=== PATIENT | female | born 2000 | race Caucasian/White ===

== ENCOUNTER 2021-03-14 11:29 | Emergency (ER) | payer BC, SELFPAY ==
[2021-03-14 13:40] VITALS: BP 124/77; PULSE 115; RESP 20; TEMP 37.5; O2SAT 100; BMI 21.9
[2021-03-14 14:11] LABS: Apearance,Urine Cloudy (Clear); Bilirubin,Urine Negative (Negative); Blood, Urine 2+ (Negative); Color,Urine Dark Yellow (Yellow); Glucose,Urine (UA) Negative (Negative); Ketones,Urine Negative (Negative); Protein,Urine Trace (Negative); UTC Leukocyte Esterase,Urine 3+ (Negative); UTC Nitrate,Urine Positive (Negative); Urobilinogen,Urine 0.2 EU/dl (0.2)
--- NOTE | 2021-03-14 14:40 | HMH.EDUTC ---
[facility] – [place] Disposition Clinical Impression: UTI (urinary tract infection) Qualifiers: Urinary tract infection type: site unspecified Hematuria presence: with hematuria Qualified Code(s): N39.0 - Urinary tract infection, site not specified Disposition: Home, Self-Care Condition on Discharge: Good Instructions: Urinary Tract Infection, DI for Urinary Tract Infection (UTI) Additional Instructions: Drink plenty of fluids. Take tylenol or ibuprofen for pain or fever. Take the medications as directed. Follow up with your regular doctor. GO TO THE ER FOR ANY WORSENING SYMPTOMS Quarantine until you know the results of your covid-19 test. If it is positive, the health department should call you and give you further instructions about your length of Quarantine and other things. Notify your school or workplace of your results and follow their instructions regarding return to work/school. The pyridium will make your urine turn orange, this is an expected side effect. It will stain your clothes if it comes into contact with them. Prescriptions: Nitrofurantoin Monohyd/M-Cryst [Macrobid 100 mg Capsule] 100 mg PO BID 5 Days #10 cap [facility]: [id number] Phenazopyridine HCl [Pyridium 200mg Tablet] 200 pow PO TID #6 tab Transmission Status: [facility] Ondansetron [Zofran 4mg ODT] 4 mg PO DAILYP PRN #12 tab PRN Reason: Nausea Transmission Status: [facility] Referrals: Provider,Referral, [Primary Care Provider] - Forms: Work/School Release Time of Disposition: 14:45 Medical Decision Making - Medical Records Medical records reviewed: No: I reviewed the patient's medical records. - Brent Inquiry Pt receiving controlled substance: No Vital Signs: 03/14/21 13:40 03/14/21 14:50 Temperature 99.5 F 99.5 F Temperature Source Oral Pulse Rate 115 H Pulse Rate [Right Brachial] 115 H Respiratory Rate 20 20 Blood Pressure 124/77 Blood Pressure [Right Arm] 124/77 Blood Pressure Mean [Right Arm] 92 Blood Pressure Source [Right Arm] Automatic Cuff Blood Pressure Position [Right Arm] Sitting 02 Sat by Pulse Oximetry 100 Oxygen Delivery Method Room Air - Lab Data Lab results reviewed: Yes: I reviewed the patient's lab results. Lab Results 03/14/21 14:00: Urine Color Dark yellow, Urine Appearance Cloudy, Urine pH 6.0, Ur Specific [place] 1.020, Urine Protein Trace, Urine Glucose (UA) Negative, Urine Ketones Negative, Urine Blood 2+, Urine Nitrate Positive A, Urine Bilirubin Negative, Urine Urobilinogen 0.2, Ur Leukocyte Esterase 3+ A [facility] – [place] HPI - General Stated complaint: back pain,chills Time Seen by Provider: 03/14/21 13:30 Mode of Arrival: Ambulatory Source of Information: Patient Limitations: No Limitations Description of Symptoms (Recalled from Triage Doc. by RN): PATIENT C/O LOWER BACK PAIN, FOUL SMELLING URINE AND CHILLS X 4 DAYS HEENT Symptoms (Recalled from RN notes): No Resp Symptoms (Recalled from RN notes): No Skin Symptoms (Recalled from RN notes): No MS Symptoms (Recalled from RN notes): No Functional Status (Recalled from RN notes): WNL - History of Present Illness Provider Complaint: She c/o low back pain for the past 3 days. She also has dysuria and urinary frequency. She thinks that she has a uti that is getting worse. She denies any fever or chills. - Related Data Previous Rx's Medication Instructions Recorded Nitrofurantoin Monohyd/M-Cryst 100 mg PO BID 5 Days #10 cap 03/14/21 [Macrobid 100 mg Capsule] Ondansetron [Zofran 4mg ODT] 4 mg PO DAILYP PRN #12 tab 03/14/21 Phenazopyridine HCl [Pyridium 200 pow PO TID #6 tab 03/14/21 200mg Tablet] Allergies Allergy/AdvReac Type Severity Reaction Status Date / Time Penicillins [PENICILLINS] Allergy Unknown Verified 03/14/21 14:10 Sulfa (Sulfonamide Allergy Unknown Verified 03/14/21 14:10 Antibiotics) [SULFA
[2021-03-14 14:50] VITALS: BP 124/77; PULSE 115; RESP 20; TEMP 37.5; O2SAT 100
== END 2021-03-14 14:53 | disposition home or self-care (01) ==
LOC: UTC 11:38
PROVIDERS: Emergency Provider Nurse Practitioner Family
DX: N30.00 Acute cystitis without hematuria (principal); Z88.0 Allergy status to penicillin; Z88.2 Allergy status to sulfonamides
CPT/HCPCS: 81003; 99202; G0463

== ENCOUNTER → 2021-07-20 16:00 | Outpatient (CLI) | payer OTHER, SELFPAY | PROVIDERS: Visit Provider Nurse Practitioner Obstetrics & Gynecology | DX: N39.0 Urinary tract infection, site not specified (principal); B96.20 Unspecified Escherichia coli [E. coli] as the cause of diseases classified elsewhere | CPT/HCPCS: 87086; 87088; 87186 ==

== ENCOUNTER → 2022-02-02 08:04 | Outpatient (CLI) | payer OTHER, SELFPAY ==
--- NOTE | 2022-02-02 08:09 | FL_ITS ---
FINAL REPORT CLINICAL HISTORY: . INFERTILITY 1.59 FLUORO TIME FINDINGS: HYSTEROSALPINGOGRAM HISTORY: Infertility. PROCEDURE: Contrast was injected by the clinical service for HSG. Spot films were performed. A total of 7 images were saved. FINDINGS: There is normal filling of the uterine cavity. Fallopian tubes appear unremarkable bilaterally. There is free spillage of contrast bilaterally. FLUOROSCOPY TIME: 1 minute 59 seconds. IMPRESSION: Free spillage of contrast bilaterally. Reviewed, Interpreted and Dictated by Will Holland III, MD Transcribed by Breana Kapoor PA-C Authenticated and [facility]
--- NOTE | 2022-02-04 10:26 | HMH.PROC ---
[facility] Procedure Note Procedure Note:: This is a procedure note from February 02, 2022 for a hysterosalpingogram. The cervix was cleansed with Hibiclens and a speculum inserted. The uterus was seen to be retroverted and I had some difficulty inserting the catheter. I then changed to a plastic speculum and grasped the anterior cervix with a tenaculum after cleaning once again with Hibiclens. I was able to pass a small catheter into the cervical canal. I then was able to pass the HSG catheter into the cervix. I injected dye and was able to easily see that the dye completely passed through both tubes. Radiology will read this report. She tolerated seizure well and was discharged home.
== END ==
PROVIDERS: PCP Family Medicine; Visit Provider Nurse Practitioner Obstetrics & Gynecology
DX: N97.9 Female infertility, unspecified (principal)
CPT/HCPCS: 74740; Q9967

== ENCOUNTER 2022-05-18 08:35 | Emergency (ER) | payer OTHER, SELFPAY ==
[2022-05-18 08:55] VITALS: BP 136/89; PULSE 99; RESP 21; TEMP 37; O2SAT 99; BMI 24.7
[2022-05-18 09:15] LABS: UTC Strep Screen (Rapid) Negative (Negative)
--- NOTE | 2022-05-18 09:18 | EXP.UTC ---
Discharge Plan Disposition Patient Disposition: Home, Self-Care Condition: Good Prescriptions Prescriptions: New azithromycin [Zithromax Z-Maxwell] 250 mg tablet See Rx Instructions .ROUTE .COMPLEX 5 Days Qty: 6 0RF Rx Instructions: For 250 mg dose pack: take 500 mg today (day 1), then 250 mg for 4 days (days 2-5) No Action topiramate 25 mg tablet 25 mg PO BID Label Comments: TAKE ONE TABLET BY MOUTH TWICE DAILY levonorgestrel-ethinyl estrad [Aviane] 0.1-20 mg-mcg tablet 1 tab PO DAILY Referrals Follow up/Referrals: Yunier Pinedo MD [Primary Care Provider] - See instructions Activity Restrictions/Add. Instructions Additional Instructions/Restrictions: *Monitor Temp, Over the counter Motrin or Tylenol as directed/as needed Tylenol every 4 hours and Motrin every 6 hours (as long as your family doctor has told you that you can take it) for fever or pain. and straight to ER if unable to lower temp less than 101.0 after medication given *Warm salt water gargles may help to soothe the throat *Throat Lozenges? *Warm fluids like tea with honey may help to soothe the throat? *Sleep elevated *Humidifier/Vaporizer Your throat swab was sent for culture. Those results are typically sent to your primary care. Be sure to follow up in 2-3 days with your family doctor/primary care physician if no improvement so they can review those result and treat if necessary. If you don?t have a primary care doctor, I recommend you get one but in the mean time, you will have to return to a walk in clinic Follow up IMMEDIATELY for new or worsening symptoms or no Noticeable improvement over the next 48-72 hours. 911 for difficulty breathing or swallowing You were tested for today for COVID19 your test result should be back in the next 24-48 hours, you may check your results on the [facility] Make sure to check back for your results Clinical Impressions Clinical Impression: URI (upper respiratory infection) Qualifiers: URI type: unspecified URI Qualified Code(s): J06.9 - Acute upper respiratory infection, unspecified Instructions Patient Instructions: Sore Throat, DI for Fever (Symptom) -- Adult Discharge ED Provider: Evelyn Burrell [facility] [place] HPI General Stated complaint: Fever, sore throat, SOA, Chest congestion Mode of Arrival: Ambulatory Source of Information: Patient Limitations: No Limitations Time Seen by Provider: 05/18/22 09:19 Description of Symptoms (Recalled from Triage Doc. by RN): PATIENT C/O FEVER, BODY ACHES, SORE THROAT, COUGH AND HEADACHE SINCE MONDAY HEENT Symptoms (Recalled from RN notes): Yes Resp Symptoms (Recalled from RN notes): Yes Skin Symptoms (Recalled from RN notes): No MS Symptoms (Recalled from RN notes): No Functional Status (Recalled from RN notes): WNL History of Present Illness Provider Complaint: Patient states that she felt bad last week but was doing better and yesterday she spiked a fever, sore throat, and body aches States that her fever last night was 102.5 States that today she is feeling achy all over and still having sore throat so she came in to get checked Related Data Home Medications Medication Instructions Recorded Confirmed levonorgestrel-ethinyl estradiol 1 tab PO DAILY control 05/18/22 05/18/22 0.1 mg-20 mcg tablet (Aviane) topiramate 25 mg tablet 25 mg PO BID Headache 05/18/22 05/18/22 Previous Rx's Medication Instructions Recorded azithromycin 250 mg tablet See Rx Instructions PO .COMPLEX 5 05/18/22 (Zithromax Z-Maxwell) days #6 tabs Allergies Allergy/AdvReac Type Severity Reaction Status Date / Time cinnamon Allergy Severe Swelling Verified 03/23/22 15:18 of Lip/Tongue/Throat Penicillins [PENICILLINS] Allergy Unknown Verified 03/23/22 15:18 Sulfa (Sulfonamide Allergy Unknown Verified 03/23/22 15:18 Antibiotics) [SULFA (SULFONAMIDE ANTIBIOTICS)] Worker's Comp Is this a Wo
[2022-05-18 09:42] LABS: Coronavirus 19, PCR Not Detected (NotDetected); Influenza A, PCR Not Detected (NotDetected); Influenza B, PCR Not Detected (NotDetected)
[2022-05-18 10:04] VITALS: BP 136/89; PULSE 99; RESP 21; TEMP 37; O2SAT 99
== END 2022-05-18 10:11 | disposition home or self-care (01) ==
PROVIDERS: Emergency Provider Nurse Practitioner; PCP Family Medicine
DX: J06.9 Acute upper respiratory infection, unspecified (principal)
CPT/HCPCS: 87880; 99212; C9803; G0463; U0003; U0005

== ENCOUNTER → 2022-08-08 23:55 | Outpatient (CLI) | payer OTHER, SELFPAY ==
[2022-08-08 17:58] LABS: Barbiturates Screen,Urine Negative ng/ml (<200); Benzodiazepines Screen,Urine Negative ng/ml (<200)
[2022-08-08 17:59] LABS: Amphetamine/Metha Screen,Urine Negative ng/ml (<1000)
[2022-08-08 18:00] LABS: Cannabinoid Screen,Urine Negative ng/ml (<50); Cocaine Screen,Urine Negative ng/ml (<300)
[2022-08-08 18:01] LABS: Methadone Screen,Urine Negative ng/ml (<300); Opiate Screen,Urine Negative ng/ml (<300)
[2022-08-08 18:04] LABS: Phencyclidine Screen,Urine Negative ng/ml (<25)
== END ==
PROVIDERS: PCP Obstetrics & Gynecology; Visit Provider Obstetrics & Gynecology
DX: Z34.90 Encounter for supervision of normal pregnancy, unspecified, unspecified trimester (principal)
CPT/HCPCS: 80305; 87086; 87088; 87186

== ENCOUNTER → 2022-08-09 08:32 | Outpatient (CLI) | payer OTHER, SELFPAY ==
[2022-08-09 08:58] LABS: Basophils % 0.3 % (0.1-2.0); Eosinophils # 0.1 K/mm3 (0.0-0.4); Eosinophils % 1.2 % (0.1-12.0); Hematocrit 43.3 % (37.0-47.0); Hemoglobin 14.1 g/dL (12.2-16.2); Lymphocytes # 1.8 K/mm3 (0.7-4.5); Lymphocytes % 24.4 % (10-50); Mean Corpuscular HGB Conc 32.6 g/dL (31.8-35.4); Mean Corpuscular Hemoglobin 29.4 pg (27.0-31.2); Mean Corpuscular Volume 90.2 fl (81-99); Mean Platelet Volume 7.5 fl (7.4-10.4); Monocytes # 0.3 K/mm3 (0.1-1.0); Monocytes % 4.3 % (1.7-9.3); Neutrophils # 5.2 K/mm3 (1.8-7.8); Neutrophils % 69.7 % (37.0-80.0); Platelet Count 350 K/mm3 (142-424); Red Cell Distribution Width 12.5 % (11.5-17.5); White Blood Count 7.5 K/mm3 (4.8-10.8)
[2022-08-10 05:29] LABS: Rubella Antibodies, IgG 5.38 index (Immune >0.99)
[2022-08-10 08:16] LABS: HIV Screen 4th Generation wRfx Non Reactive (Non Reactive)
[2022-08-10 11:22] LABS: Rapid Plasma Reagin Ab Titer Non Reactive (NonRea<1:1)
[2022-08-11 23:02] LABS: Hepatitis C Antibody NON REACTIVE
== END ==
PROVIDERS: PCP Family Medicine; Visit Provider Obstetrics & Gynecology
DX: Z34.90 Encounter for supervision of normal pregnancy, unspecified, unspecified trimester (principal)
CPT/HCPCS: 36415; 85025; 86593; 86703; 86762; 86850; 87340; 87380; G0432

== ENCOUNTER → 2022-08-10 08:17 | Outpatient (CLI) | payer OTHER, SELFPAY ==
[2022-08-10 09:16] LABS: HCG,Quantitative 47201 mIU/ml (0-5.42)
[2022-08-11 12:38] LABS: Progesterone 31.5 ng/mL (.)
== END ==
PROVIDERS: PCP Family Medicine; Visit Provider Obstetrics & Gynecology
DX: Z34.90 Encounter for supervision of normal pregnancy, unspecified, unspecified trimester (principal)
CPT/HCPCS: 36415; 84144; 84702

== ENCOUNTER → 2022-08-12 07:11 | Outpatient (CLI) | payer OTHER, SELFPAY | PROVIDERS: PCP Family Medicine; Visit Provider Obstetrics & Gynecology | DX: O20.9 Hemorrhage in early pregnancy, unspecified (principal) | CPT/HCPCS: 36415; 84702 ==

== ENCOUNTER 2022-08-18 05:44 | Outpatient (CLI) | payer OTHER, SELFPAY ==
[2022-08-18 05:46] VITALS: BMI 23.9
[2022-08-18 05:58] VITALS: BP 124/70; PULSE 88; RESP 14; TEMP 36.7; O2SAT 99
== END 2022-08-18 07:05 | disposition home or self-care (01) ==
PROVIDERS: PCP Family Medicine; Visit Provider Emergency Medicine
DX: R11.2 Nausea with vomiting, unspecified (principal)
CPT/HCPCS: 96365; 96374; G0463; J2405

== ENCOUNTER 2022-08-30 16:48 | Observation (INO) | payer OTHER, SELFPAY ==
[2022-08-30 09:13] VITALS: BMI 22.9
[2022-08-30 09:15] VITALS: BP 116/66; PULSE 69; RESP 17; TEMP 36.8; O2SAT 99; BMI 22.9
[2022-08-30 09:25] LABS: Coronavirus 19, PCR Not Detected (NotDetected); Influenza A, PCR Not Detected (NotDetected); Influenza B, PCR Not Detected (NotDetected)
[2022-08-30 09:28] LABS: Basophils % 0.4 % (0.1-2.0); Eosinophils # 0.1 K/mm3 (0.0-0.4); Hematocrit 41.2 % (37.0-47.0); Hemoglobin 13.7 g/dL (12.2-16.2); Lymphocytes # 1.3 K/mm3 (0.7-4.5); Lymphocytes % 14.7 % (10-50); Mean Corpuscular HGB Conc 33.2 g/dL (31.8-35.4); Mean Corpuscular Hemoglobin 29.8 pg (27.0-31.2); Mean Corpuscular Volume 89.7 fl (81-99); Mean Platelet Volume 7.9 fl (7.4-10.4); Monocytes # 0.3 K/mm3 (0.1-1.0); Monocytes % 3.2 % (1.7-9.3); Neutrophils # 7.4 K/mm3 (1.8-7.8); Neutrophils % 80.7 % (37.0-80.0); Platelet Count 301 K/mm3 (142-424); Red Blood Count 4.59 M/mm3 (4.20-5.40); Red Cell Distribution Width 12.3 % (11.5-17.5); White Blood Count 9.1 K/mm3 (4.8-10.8)
[2022-08-30 09:39] LABS: Chloride 104 mmol/L (98-107); Potassium 3.8 mmoL/L (3.5-5.1); Sodium 133 mmol/L (136-145)
[2022-08-30 09:41] LABS: Blood Urea Nitrogen 5 mg/dl (7-17); Creatinine Clearance Estimated 173 mL/min (50-200); Estimated Glomerular Filt Rate 153 ml/min (>60); GFR (African American) 185 ML/MIN (>60)
[2022-08-30 09:42] LABS: Alanine Aminotransferase 20 U/L (12-78); Albumin Level 4.1 g/dl (3.5-5.0); Albumin/Globulin Ratio 1.6 (1.1-1.8); Alkaline Phosphatase 49 U/L (38-126); Anion Gap 10.8 mEq/L (5-15); Aspartate Amino Transferase 24 U/L (14-36); Bilirubin,Total 0.4 mg/dl (0.2-1.3); Calcium 8.7 mg/dl (8.4-10.2); Carbon Dioxide 22 mmol/L (22.0-30.0); Globulin 2.5 g/dL (1.3-3.2); Glucose 83 mg/dl (74-100); Total Protein,Serum 6.6 g/dl (6.3-8.2)
--- NOTE | 2022-08-30 10:28 | EXP.OB.APHP ---
OB - H&P: HPI Antepartum History of Present Illness Chief complaint: nausea and vomiting History of present illness: Ms Martha Vegas is a 21 yo at 9w1d with complaint of headache, nausea and vomiting despite Promethazine and Zofran. She has only had a few crackers since Monday. She has lost 10 lbs since positive . She also complains of headaches. She had headaches prior to and was taking Topomax until she got . Tylenol does not offer any relief. Admits to small amount of brown discharge. She had vaginal bleeding in early . Denies cramping. History of Present Criteria for establishing EDC:: based on 1st trimester US only care: good care Obstetrical complications: hyperemesis Labs Blood type: AB (-) negative Rubella: immune RPR/VDRL: nonreactive HBsAG: negative PFSH PFSH Disclaimer: The information contained in this section may have been updated after the patient was seen, as this information can be updated by other users. Medical History (Updated 08/30/22 @ 12:09 by Hina Levi DO) 9 weeks gestation of Anxiety Depression Headache Hyperemesis gravidarum, antepartum Migraine Nausea and vomiting during Rh negative state in antepartum period Urinary tract infection Vaginal bleeding affecting early Surgical History H/O wisdom tooth extraction History of cholecystectomy History of exploratory laparotomy History of tonsillectomy History of tympanostomy tube placement Family History Other Family history of cancer Family history of diabetes mellitus type II Hypertension Social History Smoking Status: Never smoker alcohol intake: current substance use type: denies use current occupational status: employed Travel in the last 8 weeks: None Review of Systems Review of Systems Review of systems:: pertinent systems reviewed and negative unless documented below Constitutional Constitutional: Reports headache(s) ENT Ears, Nose, Mouth, and Throat: Reports headache(s) *Gastrointestinal Gastrointestinal: Reports nausea and Reports vomiting *Neurologic Neurologic: Reports headache(s) Meds Home Medications and Allergies Home Medications Medication Instructions Recorded Confirmed Type prenat.vits,ran,vpi-xjav-bmukj 1 tab PO DAILY Diet supplement 08/08/22 08/30/22 History ondansetron 4 mg disintegrating 4 mg PO Q8H PRN nausea and 08/10/22 08/30/22 Rx tablet vomiting #30 tabs promethazine 25 mg tablet 25 mg PO Q8H PRN nausea and 08/10/22 08/30/22 Rx vomiting #30 tabs New Prescriptions to Start Prescriptions: Allergies Allergy/AdvReac Type Severity Reaction Status Date / Time cinnamon Allergy Severe Swelling Verified 08/24/22 14:22 of Lip/Tongue/Throat Penicillins [PENICILLINS] Allergy Unknown Swelling Verified 08/30/22 08:49 of Lip/Tongue/Throat Sulfa (Sulfonamide Allergy Unknown Swelling Verified 08/30/22 08:49 Antibiotics) of [SULFA (SULFONAMIDE Lip/Tongue/Throat ANTIBIOTICS)] OB - H&P: Exam Physical Exam Vital signs: Temp Pulse Resp BP Pulse Ox 98.3 F 69 17 116/66 99 08/30/22 09:15 08/30/22 09:15 08/30/22 09:15 08/30/22 09:15 08/30/22 09:15 Constitutional no acute distress Routine HEENT Exam Head: Present normocephalic and atraumatic Eye: Absent conjunctivae pink ENT: Present mucous membranes moist and dentition normal Routine Neck Exam Present full ROM Routine Respiratory Exam Present CTA bilaterally and normal respiratory effort Routine Cardiovascular Exam Present RRR Routine Abdominal Exam Present soft and normoactive bowel sounds; Absent tenderness or distended Routine Rectal Exam Patient deferred: visual exam Routine Exam Patient deferred:
[2022-08-30 10:58] LABS: Microscopic, Urine URINE MICROSCOPIC (MICROSCOPIC)
[2022-08-30 11:04] LABS: Appearance,Urine CLEAR (Clear); Bilirubin,Urine Negative (Negative); Blood, Urine TRACE-L (Negative); Color,Urine YELLOW (Yellow); Glucose,Urine (UA) Negative (Negative); Ketones,Urine Negative (Negative); Leukocyte Esterase,Urine Negative (Negative); Nitrate,Urine Negative (Negative); PH,Urine 6.5 (5.0-8.5); Protein,Urine Negative (Negative); Specific Gravity, Urine <= 1.005 (1.005-1.030); Urobilinogen,Urine 0.2 EU/dl (0.2)
[2022-08-30 11:17] LABS: Amphetamine/Metha Screen,Urine Negative ng/ml (<1000)
[2022-08-30 11:18] LABS: Barbiturates Screen,Urine Negative ng/ml (<200); Benzodiazepines Screen,Urine Negative ng/ml (<200)
[2022-08-30 11:19] LABS: Cannabinoid Screen,Urine Negative ng/ml (<50); Cocaine Screen,Urine Negative ng/ml (<300)
[2022-08-30 11:20] LABS: Methadone Screen,Urine Negative ng/ml (<300)
[2022-08-30 11:21] LABS: Opiate Screen,Urine Negative ng/ml (<300)
[2022-08-30 11:22] LABS: Phencyclidine Screen,Urine Negative ng/ml (<25)
[2022-08-30 11:23] LABS: Bacteria,Urine Trace /lpf; RBC,Urine Occasional #/hpf (0-3); Squamous Epithelial Cell,Urine Occasional #/hpf (0-5); WBC,Urine Occasional #/hpf (0-3)
[2022-08-30 15:20] VITALS: BP 104/78; PULSE 78; RESP 18; TEMP 36.6; O2SAT 99
[2022-08-30 20:00] VITALS: BP 110/62; PULSE 73; RESP 18; TEMP 36.7; O2SAT 99
[2022-08-31 04:00] VITALS: BP 110/57; PULSE 69; RESP 18; TEMP 36.7; O2SAT 99
--- NOTE | 2022-08-31 07:47 | HMH.PHAINT1 ---
Pharmacy Intervention Comments: MEDICATION RECONCILIATION COMPLETED ON PATIENT USING EXTERNAL FILL HISTORY FROM PHARMACY. -FLOYD DAVIS, YAELD
--- NOTE | 2022-08-31 08:41 | EXP.DC.SUM ---
General Admission date:: 08/30/22 Discharge date: 08/31/22 HPI HPI HPI: Patient feeling better this morning. Admits she only vomited twice yesterday. She had a half a banana and applesauce this morning. Headache is still present. She states it is a about a 5/10. No fever/chills, chest pain or shortness of breath. No abdominal pain. No lightheadedness of dizziness. She would like to go home. Bedside ultrasound demonstrated baby's heart rate 165 bpm. Baby was moving during exam. Hospital Course Hospital Course Hospital Course: Ms Martha Vegas is a 21 yo at 9w1d admitted to [facility] with complaint of headache, nausea and vomiting despite Promethazine and Zofran. She had only had a few crackers between Monday and Monday. She has lost 10 lbs since beginning of . She also complains of headaches. She had headaches prior to and was taking Topomax until she got . Tylenol does not offer any relief. Admits to small amount of brown discharge. She had vaginal bleeding in early . Denies cramping. She received banana bag and IV fluids. Labs were within normal limits. Vital signs stable, afebrile. She was started on Protonix daily and a zofran and phenergan regimen. She was tolerating PO on hospital day # 1. She had two episodes of emesis in the past 24 hours. Headache still present. She received 1 dose of Fioricet prior to discharge. Will plan on starting mag oxide for headaches once nausea and vomiting is better controlled. Follow-up in the office on Monday, 09/05. Okay to return to work tomorrow, 09/01/22. Exam Data for Last 24 hours Vital signs and Labs for Last 24 Hours: Temp Pulse Resp BP Pulse Ox 98.1 F 69 18 110/57 L 99 08/31/22 04:00 08/31/22 04:00 08/31/22 04:00 08/31/22 04:00 08/31/22 04:00 Laboratory Results - last 24 hr 08/30/22 08:50: WBC 9.1, RBC 4.59, Hgb 13.7, Hct 41.2, MCV 89.7, MCH 29.8, MCHC 33.2, RDW 12.3, Plt Count 301, MPV 7.9, Neut % (Auto) 80.7 H, Lymph % (Auto) 14.7, Isabela % (Auto) 3.2, Eos % (Auto) 1.0, Baso % (Auto) 0.4, Neut # (Auto) 7.4, Lymph # (Auto) 1.3, Isabela # (Auto) 0.3, Eos # (Auto) 0.1, Baso # (Auto) 0.0 08/30/22 08:50: Sodium 133 L, Potassium 3.8, Chloride 104, Carbon Dioxide 22, Anion Gap 10.8, BUN 5 L, Creatinine 0.50 L, Estimated Creat Clear 173, Estimated GFR 153, Est GFR ( Amer) 185, Glucose 83, Calcium 8.7, Total Bilirubin 0.4, AST 24, ALT 20, Alkaline Phosphatase 49, Total Protein 6.6, Albumin 4.1, Globulin 2.5, Albumin/Globulin Ratio 1.6 08/30/22 08:50: SARS-CoV-2 (PCR) Not detected, Influenza A Untype (PCR) Not detected, Influenza Type B (PCR) Not detected 08/30/22 09:10: Urine Color Yellow, Urine Appearance Clear, Urine pH 6.5, Ur Specific [place] <= 1.005, Urine Protein Negative, Urine Glucose (UA) Negative, Urine Ketones Negative, Urine Blood Trace-l, Urine Nitrate Negative, Urine Bilirubin Negative, Urine Urobilinogen 0.2, Ur Leukocyte Esterase Negative, Urine RBC Occasional, Urine WBC Occasional, Ur Squamous Epith Cells Occasional, Urine Bacteria Trace 08/30/22 09:10: Urine Opiates Screen Negative, Urine Methadone Screen Negative, Ur Barbituates Screen Negative, Ur Phencyclidine Scrn Negative, Ur Amphetamines Screen Negative, U Benzodiazepines Scrn Negative, Urine Cocaine Screen Negative, U Marijuana (THC) Screen Negative I & O for Last 24 hours: Intake & Output 08/28/22 08/29/22 08/30/22 08/31/22 23:59 23:59 23:59 23:59 Weight 138 lb Constitutional Constitutional: no acute distress *Routine HEENT Exam Head: Present normocephalic and atraumatic Eye: Absent conjunctivae pink ENT: Present mucous membranes moist and dentition normal *Routine Neck Exam Neck: Present full ROM *Routine Respiratory Exam Respiratory: Present CTA bilaterally and normal respiratory effort *Routine Cardiovascular Exam Cardiovascular: Present RRR *Routine Abdominal Exam Abdominal: Present soft and normoactive bowel sounds; Absent tenderness or distended *Rou
[2022-08-31 08:45] VITALS: BP 122/77; PULSE 77; RESP 16; TEMP 36.9; O2SAT 98
[2022-08-31 11:13] LABS: Hepatitis B Surface Antigen Negative (Negative)
== END 2022-08-31 10:45 | disposition home or self-care (01) ==
LOC: OBOUT 16:49 → OB 16:49
PROVIDERS: Admitting Provider Obstetrics & Gynecology; PCP Family Medicine; Visit Provider Obstetrics & Gynecology
DX: O21.0 Mild hyperemesis gravidarum (principal); Z3A.09 9 weeks gestation of pregnancy; O46.91 Antepartum hemorrhage, unspecified, first trimester
CPT/HCPCS: 80053; 80305; 81001; 85025; 87340; C9803; G0378; J2405; U0003; U0005

== ENCOUNTER → 2022-09-28 07:04 | Outpatient (CLI) | payer OTHER, SELFPAY ==
[2022-09-28 07:11] LABS: Influenza A, PCR Not Detected (NotDetected); Influenza B, PCR Not Detected (NotDetected)
[2022-09-28 07:15] LABS: Coronavirus 19, PCR Detected (NotDetected)
== END ==
PROVIDERS: PCP Family Medicine; Visit Provider Emergency Medicine
DX: U07.1 COVID-19 (principal)
CPT/HCPCS: C9803; U0003; U0005

== ENCOUNTER → 2022-10-19 07:43 | Outpatient (CLI) | payer OTHER, SELFPAY ==
[2022-10-19 08:16] LABS: Potassium 4.8 mmoL/L (3.5-5.1)
== END ==
PROVIDERS: PCP Family Medicine; Visit Provider Obstetrics & Gynecology
DX: Z86.39 Personal history of other endocrine, nutritional and metabolic disease (principal)
CPT/HCPCS: 36415; 84132

== ENCOUNTER → 2022-11-11 14:50 | Outpatient (CLI) | payer OTHER, SELFPAY ==
--- NOTE | 2022-11-11 14:51 | US_ITS ---
FINAL REPORT TECHNIQUE: Transvaginal ultrasound imaging of the pelvis was obtained. CLINICAL HISTORY: 20 week anatomy scan USE ANATOMY TEMPLATE FINDINGS: There is a single, living intrauterine with average ultrasound age of 20 weeks 1 day. Gestational age measures 19 weeks 4 days. heart rate is identified at 149 beats per minute. The cervix measures 3.1 cm. There is a three-vessel cord. Spine is unremarkable. Fetus is in the cephalic position. The placenta is anterior and grade 1. Cord insertion is good. Mild fullness is seen of the renal pelvises bilaterally. Kidneys are otherwise unremarkable. BPD: 4.81 cm consistent with 20 weeks 4 days gestation. OFD: 5.99 cm consistent with 20 weeks 3 days gestation. HC: 17.0 cm consistent with 19 weeks 5 days gestation. Cerebellum: 1.88 cm consistent with 19 weeks 3 days gestation. Abdominal circumference: 14.7 cm consistent with 20 weeks 0 days gestation. FL: 3.16 cm consistent with 19 weeks 6 days gestation. Humerus: 3.06 cm consistent with 20 weeks 1 day gestation. IMPRESSION: Single, living intrauterine . Minimally dilated kidneys, otherwise anatomy within normal limits. Reviewed, Interpreted and Dictated by Will Holland III, MD Transcribed by Nery Lira Authenticated and [facility]
== END ==
PROVIDERS: PCP Family Medicine; Visit Provider Obstetrics & Gynecology
DX: Z34.90 Encounter for supervision of normal pregnancy, unspecified, unspecified trimester (principal); Z3A.20 20 weeks gestation of pregnancy
CPT/HCPCS: 76811

== ENCOUNTER 2023-01-10 07:01 | Outpatient (CLI) | payer OTHER, SELFPAY ==
[2023-01-10 07:18] LABS: Basophils % 0.3 % (0.1-2.0); Eosinophils # 0.2 K/mm3 (0.0-0.4); Eosinophils % 1.2 % (0.1-12.0); Hematocrit 34.8 % (37.0-47.0); Hemoglobin 11.6 g/dL (12.2-16.2); Lymphocytes # 1.8 K/mm3 (0.7-4.5); Lymphocytes % 13.2 % (10-50); Mean Corpuscular HGB Conc 33.3 g/dL (31.8-35.4); Mean Corpuscular Hemoglobin 30.1 pg (27.0-31.2); Mean Corpuscular Volume 90.5 fl (81-99); Mean Platelet Volume 7.6 fl (7.4-10.4); Monocytes # 0.5 K/mm3 (0.1-1.0); Monocytes % 3.7 % (1.7-9.3); Neutrophils # 10.9 K/mm3 (1.8-7.8); Neutrophils % 81.5 % (37.0-80.0); Platelet Count 332 K/mm3 (142-424); Red Blood Count 3.84 M/mm3 (4.20-5.40); Red Cell Distribution Width 12.7 % (11.5-17.5); White Blood Count 13.4 K/mm3 (4.8-10.8)
[2023-01-10 07:45] LABS: Glucose,Fasting 77 mg/dl (74-100)
[2023-01-10 08:40] VITALS: BP 123/68; PULSE 90; RESP 18; TEMP 36.6; O2SAT 100
[2023-01-10 08:44] LABS: Glucose 1 Hour 107 mg/dL (74-100)
== END 2023-01-10 08:40 | disposition home or self-care (01) ==
PROVIDERS: PCP Family Medicine; Visit Provider Obstetrics & Gynecology
DX: Z34.93 Encounter for supervision of normal pregnancy, unspecified, third trimester (principal); Z3A.28 28 weeks gestation of pregnancy
CPT/HCPCS: 36415; 82951; 85025; 96372; J2790

== ENCOUNTER → 2023-02-14 11:00 | Outpatient (CLI) | payer OTHER, SELFPAY | PROVIDERS: Visit Provider Obstetrics & Gynecology | DX: N64.52 Nipple discharge (principal); B95.7 Other staphylococcus as the cause of diseases classified elsewhere | CPT/HCPCS: 87070; 87077; 87186; 87205 ==

== ENCOUNTER 2023-03-08 11:08 | Outpatient (CLI) | payer OTHER, SELFPAY ==
[2023-03-08 11:24] VITALS: BMI 29.4
[2023-03-08 11:46] VITALS: BP 138/91; PULSE 73; RESP 16; O2SAT 99; BMI 29.4
[2023-03-08 12:08] LABS: Microscopic, Urine URINE MICROSCOPIC (MICROSCOPIC)
[2023-03-08 12:12] LABS: Appearance,Urine CLEAR (Clear); Bilirubin,Urine Negative (Negative); Blood, Urine Negative (Negative); Color,Urine YELLOW (Yellow); Glucose,Urine (UA) Negative (Negative); Ketones,Urine Negative (Negative); Leukocyte Esterase,Urine Negative (Negative); Nitrate,Urine Negative (Negative); PH,Urine 6.5 (5.0-8.5); Protein,Urine Negative (Negative); Specific Gravity, Urine <= 1.005 (1.005-1.030); Urobilinogen,Urine 0.2 EU/dl (0.2)
[2023-03-08 12:20] LABS: Activated Partial Thrombo Time 25.9 seconds (22.8-30.6); Fibrinogen 435 mg/dL (229.9-363.5); INR 0.93 (0.9-1.1); Prothrombin Time 10.1 seconds (10.1-12.5)
[2023-03-08 12:20] LABS: Creatinine,Urine Random 45 mg/dL (Not Estab.)
[2023-03-08 12:21] LABS: D-Dimer 2.91 ug/mL (0.0-0.5)
[2023-03-08 12:26] LABS: Basophils # 0.1 K/mm3 (0-0.2); Basophils % 0.6 % (0.1-2.0); Eosinophils # 0.1 K/mm3 (0.0-0.4); Eosinophils % 1.4 % (0.1-12.0); Hemoglobin 10.9 g/dL (12.2-16.2); Lymphocytes # 1.9 K/mm3 (0.7-4.5); Lymphocytes % 23.4 % (10-50); Mean Corpuscular HGB Conc 32.1 g/dL (31.8-35.4); Mean Corpuscular Hemoglobin 27.1 pg (27.0-31.2); Mean Corpuscular Volume 84.4 fl (81-99); Mean Platelet Volume 9.4 fl (7.4-10.4); Monocytes # 0.3 K/mm3 (0.1-1.0); Neutrophils # 5.8 K/mm3 (1.8-7.8); Neutrophils % 70.7 % (37.0-80.0); Platelet Count 246 K/mm3 (142-424); Red Blood Count 4.03 M/mm3 (4.20-5.40); Red Cell Distribution Width 13.3 % (11.5-17.5); White Blood Count 8.2 K/mm3 (4.8-10.8)
[2023-03-08 12:26] LABS: Amphetamine/Metha Screen,Urine Negative ng/ml (<1000)
[2023-03-08 12:27] LABS: Alanine Aminotransferase 25 U/L (12-78); Albumin Level 3.1 g/dl (3.5-5.0); Alkaline Phosphatase 250 U/L (38-126); Aspartate Amino Transferase 41 U/L (14-36); Globulin 2.9 g/dL (1.3-3.2)
[2023-03-08 12:27] LABS: Barbiturates Screen,Urine Negative ng/ml (<200); Benzodiazepines Screen,Urine Negative ng/ml (<200); Microalbumin < 6.000 mg/L (0-16.7)
[2023-03-08 12:28] LABS: Bacteria,Urine Trace /lpf; Cannabinoid Screen,Urine Negative ng/ml (<50); Squamous Epithelial Cell,Urine Occasional #/hpf (0-5)
[2023-03-08 12:29] LABS: Cocaine Screen,Urine Negative ng/ml (<300); Methadone Screen,Urine Negative ng/ml (<300)
[2023-03-08 12:30] LABS: Opiate Screen,Urine Negative ng/ml (<300); Phencyclidine Screen,Urine Negative ng/ml (<25)
[2023-03-08 12:33] LABS: Alanine Aminotransferase 25 U/L (12-78); Anion Gap 10.9 mEq/L (5-15); Aspartate Amino Transferase 40 U/L (14-36); Bilirubin,Total 0.1 mg/dl (0.2-1.3); Blood Urea Nitrogen 8 mg/dl (7-17); Calcium 8.1 mg/dl (8.4-10.2); Carbon Dioxide 22 mmol/L (22.0-30.0); Chloride 109 mmol/L (98-107); Creatinine Clearance Estimated 157 mL/min (50-200); Estimated Glomerular Filt Rate 103 ml/min (>60); GFR (African American) 124 ML/MIN (>60); Glucose 70 mg/dl (74-100); Potassium 3.9 mmoL/L (3.5-5.1); Sodium 138 mmol/L (136-145)
[2023-03-08 12:40] LABS: Uric Acid 6.9 mg/dl (2.5-6.2)
== END 2023-03-08 14:39 | disposition home or self-care (01) ==
LOC: OBOUT 11:11 → OB 11:11
PROVIDERS: PCP Family Medicine; Visit Provider Obstetrics & Gynecology
DX: O13.3 Gestational [pregnancy-induced] hypertension without significant proteinuria, third trimester (principal); Z3A.36 36 weeks gestation of pregnancy; O12.03 Gestational edema, third trimester
CPT/HCPCS: 59025; 80048; 80305; 81001; 82040; 82043; 82239; 82247; 82570; 84075; 84155; 84450; 84460; 84550; 85025; 85378; 85384; 85610; 85730; G0463

== ENCOUNTER → 2023-03-08 23:16 | Outpatient (CLI) | payer OTHER, SELFPAY | PROVIDERS: PCP Obstetrics & Gynecology; Visit Provider Obstetrics & Gynecology | DX: Z34.93 Encounter for supervision of normal pregnancy, unspecified, third trimester (principal); Z3A.36 36 weeks gestation of pregnancy | CPT/HCPCS: 86403 ==

== ENCOUNTER 2023-03-13 13:46 | Inpatient (IN) | payer OTHER, SELFPAY ==
[2023-03-13] VITALS (10 sets, daily range): BP systolic 121–154; BP diastolic 71–96; PULSE 53–77; RESP 18; TEMP 36.9–37; O2SAT 99–100; BMI 29.6
[2023-03-13 12:15] LABS: Basophils % 0.3 % (0.1-2.0); Eosinophils # 0.1 K/mm3 (0.0-0.4); Eosinophils % 1.1 % (0.1-12.0); Hemoglobin 10.5 g/dL (12.2-16.2); Lymphocytes # 1.6 K/mm3 (0.7-4.5); Lymphocytes % 20.5 % (10-50); Mean Corpuscular HGB Conc 32.8 g/dL (31.8-35.4); Mean Corpuscular Hemoglobin 27.6 pg (27.0-31.2); Mean Corpuscular Volume 84.3 fl (81-99); Mean Platelet Volume 9.7 fl (7.4-10.4); Monocytes # 0.3 K/mm3 (0.1-1.0); Monocytes % 4.3 % (1.7-9.3); Neutrophils # 5.9 K/mm3 (1.8-7.8); Neutrophils % 73.7 % (37.0-80.0); Platelet Count 225 K/mm3 (142-424); Red Blood Count 3.79 M/mm3 (4.20-5.40); Red Cell Distribution Width 13.5 % (11.5-17.5)
[2023-03-13 12:29] LABS: Activated Partial Thrombo Time 26.5 seconds (22.8-30.6); Fibrinogen 390 mg/dL (229.9-363.5); INR 0.97 (0.9-1.1); Prothrombin Time 10.5 seconds (10.1-12.5)
[2023-03-13 12:31] LABS: Alanine Aminotransferase 27 U/L (12-78); Albumin Level 2.9 g/dl (3.5-5.0); Alkaline Phosphatase 227 U/L (38-126); Aspartate Amino Transferase 42 U/L (14-36); Total Protein,Serum 5.8 g/dl (6.3-8.2)
[2023-03-13 12:32] LABS: Alanine Aminotransferase 26 U/L (12-78); Anion Gap 11.2 mEq/L (5-15); Aspartate Amino Transferase 38 U/L (14-36); Blood Urea Nitrogen 6 mg/dl (7-17); Calcium 8.1 mg/dl (8.4-10.2); Carbon Dioxide 21 mmol/L (22.0-30.0); Chloride 108 mmol/L (98-107); Creatinine Clearance Estimated 138 mL/min (50-200); Estimated Glomerular Filt Rate 88 ml/min (>60); GFR (African American) 107 ML/MIN (>60); Glucose 81 mg/dl (74-100); Potassium 4.2 mmoL/L (3.5-5.1); Sodium 136 mmol/L (136-145); Uric Acid 7.8 mg/dl (2.5-6.2)
[2023-03-13 12:33] LABS: Bilirubin,Total < 0.1 mg/dl (0.2-1.3)
[2023-03-13 12:37] LABS: D-Dimer 3.41 ug/mL (0.0-0.5)
[2023-03-13 12:44] LABS: Bilirubin,Indirect 0.1 mg/dL (0.0-0.9)
[2023-03-13 12:50] LABS: Appearance,Urine CLEAR (Clear); Bilirubin,Urine Negative (Negative); Blood, Urine 2+ (Negative); Color,Urine YELLOW (Yellow); Glucose,Urine (UA) Negative (Negative); Ketones,Urine Negative (Negative); Leukocyte Esterase,Urine Negative (Negative); Nitrate,Urine Negative (Negative); PH,Urine 6.5 (5.0-8.5); Protein,Urine Negative (Negative); Specific Gravity, Urine <= 1.005 (1.005-1.030); Urobilinogen,Urine 0.2 EU/dl (0.2)
[2023-03-13 12:52] LABS: Microscopic, Urine URINE MICROSCOPIC (MICROSCOPIC)
[2023-03-13 13:08] LABS: Bacteria,Urine Trace /lpf; Squamous Epithelial Cell,Urine Occasional #/hpf (0-5); WBC,Urine Occasional #/hpf (0-3)
[2023-03-13 13:16] LABS: Benzodiazepines Screen,Urine Negative ng/ml (<200)
[2023-03-13 13:17] LABS: Amphetamine/Metha Screen,Urine Negative ng/ml (<1000); Barbiturates Screen,Urine Negative ng/ml (<200)
[2023-03-13 13:18] LABS: Methadone Screen,Urine Negative ng/ml (<300)
[2023-03-13 13:19] LABS: Cannabinoid Screen,Urine Negative ng/ml (<50); Cocaine Screen,Urine Negative ng/ml (<300)
[2023-03-13 13:20] LABS: Opiate Screen,Urine Negative ng/ml (<300)
[2023-03-13 13:21] LABS: Phencyclidine Screen,Urine Negative ng/ml (<25)
[2023-03-13 13:37] LABS: Creatinine,Urine Random 46 mg/dL (Not Estab.)
--- NOTE | 2023-03-13 13:40 | EXP.OB.APHP ---
OB - H&P: HPI Antepartum History of Present Illness Chief complaint: Elevated blood pressure, lower extremity swelling History of present illness: Ms Martha Vegas is a 22 yo at 37w0d who presents from the office for elevated blood pressure, lower extremity edema and general not feeling well. She has had good care. She admits to pink tinged vaginal discharge. She has been having irregular contractions and pelvic pressure. She admits to nausea and vomiting. She admits she had a headache this morning after vomiting but headache has resolved. No vision changes. She reports itching of hands, feet and thighs. On 03/08 LFTs were within normal limits, Bile acids were 8. She also reports BP readings at home over the weekend 150's/80's. Baby is active. History of Present Criteria for establishing EDC:: based on 1st trimester US only care: good care Ultrasounds: abnormal US findings (mild right renal pelvis dilation of baby) Obstetrical complications: gestational hypertension Medical complications: none Labs Blood type: AB (-) negative Rubella: immune RPR/VDRL: nonreactive GBS status: unknown (pending) HBsAG: negative PFSH PFS Disclaimer: The information contained in this section may have been updated after the patient was seen, as this information can be updated by other users. Medical History (Updated 03/13/23 @ 14:37 by Hina Levi DO) 37 weeks gestation of Anxiety Depression Elevated blood pressure affecting in third trimester, antepartum Gestational hypertension Headache Hyperemesis gravidarum, antepartum Migraine Nausea and vomiting during Pyelectasis of fetus on ultrasound Rh negative state in antepartum period Urinary tract infection Vaginal bleeding affecting early Surgical History H/O wisdom tooth extraction History of cholecystectomy History of exploratory laparotomy History of tonsillectomy History of tympanostomy tube placement Family History Other Family history of cancer Family history of diabetes mellitus type II Hypertension Social History Smoking Status: Current every day smoker tobacco type: e-cigarettes alcohol intake: former substance use type: denies use current occupational status: employed Travel in the last 8 weeks: None Review of Systems Review of Systems Review of systems:: pertinent systems reviewed and negative unless documented below *Gastrointestinal Gastrointestinal: Reports nausea and Reports vomiting *Genitourinary Genitourinary: Reports as per HPI and Reports pelvic pain Comments: + contractions *Musculoskeletal Musculoskeletal: Reports as per HPI Integumentary/Breasts Skin/Breast: Reports as per HPI Meds Home Medications and Allergies Home Medications Medication Instructions Recorded Confirmed Type metronidazole 500 mg tablet 500 mg PO BID Infection 03/13/23 03/13/23 History vit no.95-ferrous 1 tab PO DAILY Supplement 03/13/23 03/13/23 History fumarate 28 mg-folic acid 800 mcg tablet () New Prescriptions to Start Prescriptions: Allergies Allergy/AdvReac Type Severity Reaction Status Date / Time cinnamon Allergy Severe Swelling Verified 03/13/23 11:07 of Lip/Tongue/Throat Penicillins [PENICILLINS] Allergy Unknown Swelling Verified 03/13/23 11:07 of Lip/Tongue/Throat Sulfa (Sulfonamide Allergy Unknown Swelling Verified 03/13/23 11:07 Antibiotics) of [SULFA (SULFONAMIDE Lip/Tongue/Throat ANTIBIOTICS)] OB - H&P: Exam Physical Exam Vital signs: Temp Pulse Resp BP Pulse Ox O2 Del Method 98.6 F 77 18 136/93 H 99 Room Air 03/13/23 11:50 03/13/23 12:20 03/13/23 11:50 03/13/23 12:20 03/13/23 11:50 03/13/23 11:
[2023-03-13 13:43] LABS: Microalbumin/Creatinine Ratio 17.1
--- NOTE | 2023-03-13 14:23 | P.CONPHA_ITS ---
Pharmacy Intervention Comments: MEDICATION RECONCILIATION COMPLETED ON PATIENT USING EXTERNAL FILL HISTORY AND LIST FROM [facility] COACH OFFICE. -FLOYD DAVIS, YAELD
--- NOTE | 2023-03-13 14:23 | HMH.PHAINT1 ---
Pharmacy Intervention Comments: MEDICATION RECONCILIATION COMPLETED ON PATIENT USING EXTERNAL FILL HISTORY AND LIST FROM [facility] TEAM MEMBER OFFICE. -FLOYD DAVIS, YALED
--- NOTE | 2023-03-13 16:01 | EXP.PHA.CONS ---
Pharmacy Consult Date: 03/13/23 Time: 16:01 Referring provider: DR. LEVI Allergies Allergy/AdvReac Type Severity Reaction Status Date / Time cinnamon Allergy Severe Swelling Verified 03/13/23 11:07 of Lip/Tongue/Throat Penicillins [PENICILLINS] Allergy Unknown Swelling Verified 03/13/23 11:07 of Lip/Tongue/Throat Sulfa (Sulfonamide Allergy Unknown Swelling Verified 03/13/23 11:07 Antibiotics) of [SULFA (SULFONAMIDE Lip/Tongue/Throat ANTIBIOTICS)] Home Medications Medication Instructions Recorded Confirmed Type metronidazole 500 mg tablet 500 mg PO BID Infection 03/13/23 03/13/23 History vit no.95-ferrous 1 tab PO DAILY Supplement 03/13/23 03/13/23 History fumarate 28 mg-folic acid 800 mcg tablet () New Prescriptions to Start Prescriptions: Height: 1.65 m Weight: 80.739 kg Laboratory Results:: Laboratory Results - last 24 hr 03/13/23 12:00: WBC 8.0, RBC 3.79 L, Hgb 10.5 L, Hct 32.0 L, MCV 84.3, MCH 27.6, MCHC 32.8, RDW 13.5, Plt Count 225, MPV 9.7, Neut % (Auto) 73.7, Lymph % (Auto) 20.5, [place] % (Auto) 4.3, Eos % (Auto) 1.1, Baso % (Auto) 0.3, Neut # (Auto) 5.9, Lymph # (Auto) 1.6, [place] # (Auto) 0.3, Eos # (Auto) 0.1, Baso # (Auto) 0.0, PT 10.5, INR 0.97, APTT 26.5, Fibrinogen 390 H, D-Dimer 3.41 H, Sodium 136, Potassium 4.2, Chloride 108 H, Carbon Dioxide 21 L, Anion Gap 11.2, BUN 6 L, Creatinine 0.80, Estimated Creat Clear 138, Estimated GFR 88, Est GFR ( Amer) 107, Glucose 81, Uric Acid 7.8 H, Calcium 8.1 L, Total Bilirubin < 0.1 L, Direct Bilirubin 0.0, Conjugated Bilirubin 0.0, Indirect Bilirubin 0.1, Unconjugated Bilirubin 0.0, AST 38 H 03/13/23 12:00: AST 42 H, ALT 26 03/13/23 12:00: ALT 27, Alkaline Phosphatase 227 H, Total Protein 5.8 L, Albumin 2.9 L, Blood Type AB Negative, Antibody Screen Negative 03/13/23 12:25: Urine Color Yellow, Urine Appearance Clear, Urine pH 6.5, Ur Specific [place] <= 1.005, Urine Protein Negative, Urine Glucose (UA) Negative, Urine Ketones Negative, Urine Blood 2+, Urine Nitrate Negative, Urine Bilirubin Negative, Urine Urobilinogen 0.2, Ur Leukocyte Esterase Negative, Urine RBC 3-5, Urine WBC Occasional, Ur Squamous Epith Cells Occasional, Urine Bacteria Trace, Urine Creatinine 46, Urine Microalbumin 7.900, Microalb/Creat Ratio 17.1, Urine Opiates Screen Negative, Urine Methadone Screen Negative, Ur Barbituates Screen Negative, Ur Phencyclidine Scrn Negative, Ur Amphetamines Screen Negative, U Benzodiazepines Scrn Negative, Urine Cocaine Screen Negative, U Marijuana (THC) Screen Negative Medical History: Medical History (Updated 03/13/23 @ 14:37 by Hina Levi DO) 37 weeks gestation of Anxiety Depression Elevated blood pressure affecting in third trimester, antepartum Gestational hypertension Headache Hyperemesis gravidarum, antepartum Migraine Nausea and vomiting during Pyelectasis of fetus on ultrasound Rh negative state in antepartum period Urinary tract infection Vaginal bleeding affecting early
[2023-03-14 00:48] VITALS: BP 143/73; PULSE 70
[2023-03-14 01:49] VITALS: BP 121/66; PULSE 67
[2023-03-14 02:48] VITALS: BP 127/69; PULSE 57
[2023-03-14 03:50] VITALS: BP 165/84; PULSE 69; RESP 18; TEMP 36.9; O2SAT 99
[2023-03-14 04:57] VITALS: BP 151/89; PULSE 65
[2023-03-14 05:56] VITALS: BP 143/78; PULSE 62
--- NOTE | 2023-03-14 09:46 | EXP.ANES.CKL ---
[facility] Disclaimer: The information contained in this section may have been updated after the patient was seen, as this information can be updated by other users. Medical History 37 weeks gestation of Anxiety Depression Elevated blood pressure affecting in third trimester, antepartum Gestational hypertension Headache Hyperemesis gravidarum, antepartum Migraine Nausea and vomiting during Pyelectasis of fetus on ultrasound Rh negative state in antepartum period Urinary tract infection Vaginal bleeding affecting early Surgical History H/O wisdom tooth extraction History of cholecystectomy History of exploratory laparotomy History of tonsillectomy History of tympanostomy tube placement Family History Other Family history of cancer Family history of diabetes mellitus type II Hypertension Social History Smoking Status: Current every day smoker tobacco type: e-cigarettes alcohol intake: former substance use type: denies use current occupational status: employed Travel in the last 8 weeks: None [facility] Anesthesia Checklist Patient Identification Patient Identification: Arm Band and Verbal (Name & ) Structural Data Admitted From: Inpatient Planned Operative Procedure/s: Labor epidural Consent for Planned Operative Procedure(s) Verified: Yes NPO Status Verified Time NPO: 00:00 Chart Verification Results Verified: CBC Additional verifications Patient : Yes Anesthesia Reactions: No Airway Assessment Mallampati Score:: Class II C-Spine Mobility Assessed: Yes TMJ Mobility Assessed: Yes Dentition: Good Dentition Neurological Assessment Level of Consciousness: Awake Hx Seizures: No Numbness or tingling in extremities: No Anesthesia Plan Anesthesia Risk discussed: Yes Anesthesia Plan: Verified ASA Class: II Anesthesia Type: Epidural
--- NOTE | 2023-03-14 13:22 | EXP.DN ---
Delivery Note Delivery Date:: 03/14/23 Delivery Time:: 12:29 Anesthesia Type: Epidural Was labor medically induced?: Yes Induction method: per pitocin protocol Gestational age (weeks): 37 delivered prior to 39 weeks?: Yes Justification for early elective delivery:: Gestational Hypertension Gender: Female at 1 minute: 8 at 5 minutes: 9 LAC or MLE?: LAC Delivery Procedure:: Preoperative diagnosis: 1. at 37 completed this weeks gestation, vertex 2. Rh positive 3. GBS negative 4. Gestational Hypertension Postoperative diagnosis: 1. at 39 completed this weeks gestation, vertex 2. Rh positive 3. GBS negative 4. Gestational Hypertension EBL: 350mL Specimen: 1. Cord blood Findings: 1. Liveborn viable female : Arely. Apgars 8/9 at 1 and 5 minutes respectively. Weight pending at time of dictation 2. 1st degree midline perineal laceration and bilateral labial/ periclitoral lacerations. Complications: None Martha Vegas is a 22yo who presented for induction of labor secondary to gestational hypertension. Her blood pressures have been well controlled throughout her labor course. On arrival she was noted to be 3/80. Pitocin was started for labor augmentation. The patient had artificial rupture membranes revealing clear fluid. She received an epidural for anesthesia. She progressed to complete. The was noted to be in the direct OA position. With effective maternal pushing there was a nonoperative spontaneous vaginal delivery at 1229. There was no nuchal cord. There was a rapid delivery of the head. The anterior left shoulder delivered, followed by the posterior shoulder without dystocia. The body and lower extremities delivered without difficulty. The was bulb suctioned and was crying immediately following delivery. The was placed on the maternal abdomen and greater than one minute was appreciated for delayed cord clamping. The umbilical cord was doubly clamped and cut. Cord blood was collected and sent for routine testing. The placenta delivered with cord traction and suprapubic contertraction. Pitocin was started and the placenta and cord were inspected. The placenta was noted to be intact, with a 3 vessel cord. The uterus was firm and bleeding was minimal. The perineum, vaginal schultz, cervix, and paraurethral area were inspected thoroughly. There was a first-degree midline perineal laceration this was only bleeding slightly so attention was given to the bilateral labial lacerations which was bleeding. The left labial laceration was repaired with 2 figure of 8 stitches which made the area hemostatic. The periclitoral area was reapproximated with simple interrupted sutures. The right labial laceration was hemostatic reapproximated with single simple interrupted sutures. The first-degree perineal laceration was really approximated in a normal fashion with 2-0 Vicryl. Epidural was adequate for anesthesia. The cervix and vaginal schultz were inspected and noted to be hemostatic. This concluded the delivery. The patient was counseled regarding the events of the delivery and repair. The patient tolerated the delivery well. All counts were correct by nursing. Mother and infant were bonding and doing well upon my leaving the delivery room. Prior to delivery Maryellen, a labor and delivery nurse and a dining service worker student, spoke with the patient and she consented for a teaching delivery. This delivery was completed by Maryellen, student dining service worker and I observed the delivery and assisted with repair. Laceration:: vaginal Placental Delivery Description: Spontaneous and Expressed
[2023-03-15 06:44] LABS: Basophils % 0.2 % (0.1-2.0); Eosinophils # 0.1 K/mm3 (0.0-0.4); Monocytes # 0.4 K/mm3 (0.1-1.0); Red Cell Distribution Width 13.3 % (11.5-17.5)
[2023-03-15 06:54] LABS: Eosinophils % 0.8 % (0.1-12.0); Hematocrit 27.1 % (37.0-47.0); Lymphocytes # 1.8 K/mm3 (0.7-4.5); Lymphocytes % 14.9 % (10-50); Mean Corpuscular HGB Conc 31.2 g/dL (31.8-35.4); Mean Corpuscular Volume 86.4 fl (81-99); Mean Platelet Volume 9.1 fl (7.4-10.4); Monocytes % 3.4 % (1.7-9.3); Neutrophils # 9.9 K/mm3 (1.8-7.8); Neutrophils % 80.8 % (37.0-80.0); Platelet Count 189 K/mm3 (142-424); Red Blood Count 3.14 M/mm3 (4.20-5.40); White Blood Count 12.2 K/mm3 (4.8-10.8)
[2023-03-15 06:56] LABS: Hemoglobin 8.5 g/dL (12.2-16.2)
[2023-03-15 08:29] VITALS: BP 142/85; PULSE 61; RESP 18; TEMP 36.8; O2SAT 99
--- NOTE | 2023-03-15 10:28 | EXP.DC.SUM ---
General Admission date:: 03/13/23 Discharge date: 03/15/23 HPI HPI HPI: PPD # 1 s/p Martha is feeling well. Pain controlled. Lochia is appropriate. She is breast feeding. Voiding without difficulty and passing flatus. Tolerating regular diet. Tolerating regular diet. Denies fever/chills, chest pain and shortness of breath. No headaches, vision changes, lightheadedness/dizziness. Admits to lower extremity swelling. Ambulating well ad asya. Hospital Course Hospital Course Hospital Course: Ms Martha Vegas is a 22 yo at 37w0d admitted to [facility] L&D for induction of labor secondary to new onset gestational hypertension. She has had good care. She underwent induction of labor with Pitocin. She had a normal spontaneous vaginal delivery on 03/14/23 at 1229. She delivered a live baby girl, Arely, weighing 7 lb 5 oz. APGARs 8, 9. EBL 350 mL. She did well . Pain controlled. Lochia is appropriate. Breast feeding. Voiding without difficulty and passing flatus. Tolerating regular diet. Tolerating regular diet. Denies fever/chills, chest pain and shortness of breath. No headaches, vision changes, lightheadedness/dizziness. Admits to lower extremity swelling. Ambulating well ad asya. She was started on ferrous sulfate 325 mg PO daily for acute blood anemia. Normal hospital course. Exam Data for Last 24 hours Vital signs and Labs for Last 24 Hours: Temp Pulse Resp BP Pulse Ox O2 Del Method 98.5 F 62 18 143/78 H 99 Room Air 03/14/23 03:50 03/14/23 05:56 03/14/23 03:50 03/14/23 05:56 03/14/23 03:50 03/14/23 03:50 Laboratory Results - last 24 hr 03/15/23 06:25: WBC 12.2 H D, RBC 3.14 L, Hgb 8.5 L, Hct 27.1 L, MCV 86.4, MCH 27.0, MCHC 31.2 L, RDW 13.3, Plt Count 189, MPV 9.1, Neut % (Auto) 80.8 H, Lymph % (Auto) 14.9, [place] % (Auto) 3.4, Eos % (Auto) 0.8, Baso % (Auto) 0.2, Neut # (Auto) 9.9 H, Lymph # (Auto) 1.8, [place] # (Auto) 0.4, Eos # (Auto) 0.1, Baso # (Auto) 0.0 I & O for Last 24 hours: Intake & Output 03/12/23 03/13/23 03/14/23 03/15/23 23:59 23:59 23:59 23:59 Weight 177 lb 15.984 oz Constitutional Constitutional: no acute distress and cooperative *Routine HEENT Exam Head: Present normocephalic and atraumatic Eye: Absent conjunctivae pink ENT: Present mucous membranes moist *Routine Neck Exam Neck: Present full ROM *Routine Respiratory Exam Respiratory: Present CTA bilaterally and normal respiratory effort *Routine Cardiovascular Exam Cardiovascular: Present RRR *Routine Abdominal Exam Abdominal: Present soft and normoactive bowel sounds; Absent tenderness or distended Comments: Uterine fundus firm and below umbilicus *Routine Rectal Exam Patient deferred: visual exam *Routine Exam Patient deferred: external exam *Routine Extremities Exam Extremities: Present edema (+1 bilateral lower extremity edema) and full ROM; Absent calf tenderness *Routine Neurological Exam Neurological: Present alert, oriented X3 and moving all extremities Routine Psychiatric Exam Psychiatric: Present normal affect and cooperative Results Data Completed and Pending Labs on day of discharge: Labs from last 24 hours 03/15/23 06:25 WBC 12.2 H D RBC 3.14 L Hgb 8.5 L Hct 27.1 L MCV 86.4 MCH 27.0 MCHC 31.2 L RDW 13.3 Plt Count 189 MPV 9.1 Neut % (Auto) 80.8 H Lymph % (Auto) 14.9 [place] % (Auto) 3.4 Eos % (Auto) 0.8 Baso % (Auto) 0.2 Neut # (Auto) 9.9 H Lymph # (Auto) 1.8 [place] # (Auto) 0.4 Eos # (Auto) 0.1 Baso # (Auto) 0.0 DS: Diagnosis Discharge Diagnosis (1) 37 weeks gestation of : Status: Acute Code(s): Z3A.37 - 37 weeks gestation of (2) Gestational hypertension: Status: Acute Code(s): O13.9 - Gestational [-induced] hypertension without significant proteinuria, unspecified trimester (3) Pyelectasis of fetus on ultrasound: Status: Acute Code(s): O35.EXX0 - Maternal ca
== END 2023-03-15 16:05 | disposition home or self-care (01) | DRG 806 ==
LOC: OBOUT 13:46 → OB 13:46
PROVIDERS: Obstetrics & Gynecology; Admitting Provider Nurse Practitioner Obstetrics & Gynecology; PCP Family Medicine; Visit Provider Nurse Practitioner Obstetrics & Gynecology
DX: O70.0 First degree perineal laceration during delivery (principal); D62 Acute posthemorrhagic anemia; Z37.0 Single live birth; O70.9 Perineal laceration during delivery, unspecified; O13.4 Gestational [pregnancy-induced] hypertension without significant proteinuria, complicating childbirth; O71.89 Other specified obstetric trauma; Z3A.39 39 weeks gestation of pregnancy; O99.02 Anemia complicating childbirth
CPT/HCPCS: 59409; 36415; 59025; 80048; 80076; 80305; 81001; 82043; 82570; 84450; 84460; 84550; 85025; 85378; 85384; 85610; 85730; 86850; 94761; G0283; J0595; J2405

== ENCOUNTER 2023-11-24 11:58 | Outpatient (CLI) | payer OTHER, SELFPAY ==
[2023-11-24 12:17] LABS: Basophils # 0.1 K/mm3 (0-0.2); Basophils % 1.1 % (0.1-2.0); Eosinophils # 0.1 K/mm3 (0.0-0.4); Eosinophils % 1.6 % (0.1-12.0); Hematocrit 45.1 % (37.0-47.0); Hemoglobin 14.6 g/dL (12.2-16.2); Lymphocytes # 2.1 K/mm3 (0.7-4.5); Lymphocytes % 23.8 % (10-50); Mean Corpuscular HGB Conc 32.4 g/dL (31.8-35.4); Mean Corpuscular Volume 92.7 fl (81-99); Mean Platelet Volume 7.6 fl (7.4-10.4); Monocytes # 0.4 K/mm3 (0.1-1.0); Monocytes % 4.8 % (1.7-9.3); Neutrophils # 6.1 K/mm3 (1.8-7.8); Neutrophils % 68.7 % (37.0-80.0); Platelet Count 302 K/mm3 (142-424); Red Blood Count 4.87 M/mm3 (4.20-5.40); Red Cell Distribution Width 13.9 % (11.5-17.5); White Blood Count 8.9 K/mm3 (4.8-10.8)
[2023-11-24 12:37] LABS: Chloride 103 mmol/L (98-107)
[2023-11-24 12:38] LABS: Potassium 4.1 mmoL/L (3.5-5.1); Sodium 138 mmol/L (136-145)
[2023-11-24 12:40] LABS: Alanine Aminotransferase 27 U/L (12-78); Albumin Level 4.4 g/dl (3.5-5.0); Albumin/Globulin Ratio 1.5 (1.1-1.8); Alkaline Phosphatase 69 U/L (38-126); Aspartate Amino Transferase 28 U/L (14-36); Bilirubin,Total 0.4 mg/dl (0.2-1.3); Blood Urea Nitrogen 15 mg/dl (7-17); Estimated Glomerular Filt Rate 103 ml/min (>60); GFR (African American) 124 ML/MIN (>60); Globulin 2.9 g/dL (1.3-3.2); Total Protein,Serum 7.3 g/dl (6.3-8.2)
[2023-11-24 12:41] LABS: Anion Gap 10.1 mEq/L (5-15); Calcium 9.4 mg/dl (8.4-10.2); Carbon Dioxide 29 mmol/L (22.0-30.0); Glucose 84 mg/dl (74-100); Magnesium 1.8 mg/dl (1.6-2.3); Phosphorous 3.7 mg/dl (2.5-4.5)
[2023-11-24 13:11] LABS: Thyroid Stimulating Hormone 0.95 uIU/mL (0.465-4.68)
[2023-11-24 14:16] LABS: Vitamin B12 445 pg/mL (239-931)
[2023-11-28 05:52] LABS: Zinc 56 ug/dL (44-115)
[2023-11-29 08:22] LABS: Vitamin B1 116.8 nmol/L (66.5-200.0)
[2023-11-30 10:13] LABS: Vitamin E Alpha Tocopherol 9.3 mg/L (5.9-19.4)
== END 2023-11-24 23:59 | disposition home or self-care (01) ==
LOC: LAB 11:58
PROVIDERS: PCP Family Medicine; Visit Provider Family Medicine
DX: R53.83 Other fatigue (principal)
CPT/HCPCS: 36415; 80050; 80053; 82607; 83735; 84100; 84425; 84443; 84446; 84630; 85025

== ENCOUNTER 2025-03-13 07:05 | Outpatient (CLI) | payer OTHER, SELFPAY ==
--- OUTSIDE RECORDS SUMMARY | 2019-01-18 20:00 | XMS_ITS | Continuity of Care Document ---
Author Organization [facility] Address [address] [place] [phone] Phone Care Team Providers Care Claim Representative Name Role Phone Management, Case Unavailable Unavailable Brittny Lee Unavailable Unavailable Procedures Procedure Date Face To Face Health Education Screening BP Advance Directives Directive Yes / No Effective Date File Name No Information Encounters Encounter Description Practice Location Reason(s) For Visit Diagnoses Date Provider Providers Copied on Encounter [facility], [address] [place] [address], [id number], [place] tel:[phone] [facility] No Information 9 Management Case. . Referring Provider: Case Management .Consultin g Provider: Brittny Lee. Family History Family Member Type Diagnosis Age At Onset No Information Payers Payer name Insurance type Covered democrat ID Authoriza tion(s) No Information Social History [...]
--- OUTSIDE RECORDS SUMMARY | 2024-05-03 10:15 | XMS_ITS ---
[facility] [address] [facility] [address] [facility] [address] [place] [id number] Care Team Providers Care Client Experience Consultant Name Role Phone Yunier Pinedo Unavailable [phone] Allergies Allergen (clinical drug ingredient) Drug/Non Drug Allergy documented on EMR Reaction Allergy Type Onset Date Status Sulfamethoxazole Unknown Drug Allergy Active Penicillin Unknown Drug Allergy Active REASON FOR VISIT medication discuss Medications Medication SIG (Take, Route, Frequency, Duration) Notes Start Date End Date Status EpiPen 2-Maxwell 0.3 MG/0.3ML as directed In jection once daily as needed 04/01/2024 Active DULoxetine HCl 60 MG 1 capsule Orally On ce a day; Duration: 30 day(s) 05/03/2024 Active SUMAtriptan Succinate 100 MG 1 tablet as needed, may take second dose at least 2 hours after first dose up to 2 tablets per day as needed Orally Once a day 04/01/2024 Active Mirena (52 MG) 20 MCG/DAY as directed Intrauterine Active Problems Problem Type SNOMED Code ICD Code Onset Dates Problem Status W/U Status Risk Notes Problem Mixed anxiety and depressive disorder (466352072) Depression with anxiety (F41.8) Active confirmed Vital Signs Blood pressure systolic 122 mm Hg 05/03/20 24 Blood pressure diastolic 70 mm Hg 024 Heart Rate 91 /min 05/03/2024 Height 65 in 05/03/2024 Weight 172.2 lbs 05/03/2024 BMI 28.65 kg/m2 05/03/2024 Encounters Encounter Location Date Provider Diagnosis [facility] [address] [facility] [address] [place] [id number] 05/03/20[place] Depression with anxi ety F41.8 Assessments Encounter Date Diagnosis (ICD Code) Assessment Notes Treatment Notes Treatment Clinical Notes Section Notes 05/03/2024 Depression with anxiety (ICD-10 - F41.8) Plan Of Treatment Medication Medication Name Sig Start Date Stop Date Notes DULoxetine HCl 60 MG 1 capsule Orally On ce a day; Duration: 30 day(s) 05/03/2024 Next Appt Details Follow Up: 3 or 4 Weeks, Radha son: Progress Notes * STEFANI VEGASOB:[birth year] (24 yo F)Acc No.[id number]:05/03/2024 Progress Notes Patient: HERNAN BAKER Provider: Eliseo Pinedo M.D. :2000 A ge:23 Y S ex:Female Date:05/03/2024 Address:[address] [place] [address] Subjective: * Chief Complaints: * 1 . Medication discuss. * HPI: P sychology: 23 year old female presents with c/o Anxiety P t states that she saw psychiatry yesterday, Tamara Conroy [facility] and was advised to see PCP to get on medication for severe anxiety . * ROS: D ERMATOLOGY: no R helena. n o H jesus. G ASTROENTEROLOGY: no N ausea. n o V omiting. U ROLOGY: no D ifficulty urinating. n o B lood in urine. * Medical History: A llergic Rhinitis, Gall Bladder Problems, Depression, Allergic to Cinnamon. * Surgical History: T onsilectomy , Cholecystectomy . * Hospitalization/Major Diagno stic Procedure: D enies Past Hospitalization. * Family History: M other: alive, diagnosed with Heart Disease. 1 sister(s) . . Diabetes: Aunts and Grandparents no living will No power of emt/dispatcher. * Social History: C URRENT TOBACCO USE: No . C affeine: yes, frequency: 1 cup a day. Marital Status: Single. Alcohol: yes, socially. Occupation: employed, [employer] lab. Sexually active: yes. * Medications: T aking Mirena (52 MG) 20 MCG/DAY Intrauterine Device as directed Intrauterine , Taking SUMAtriptan Succinate 100 MG Tablet 1 tablet as needed, may take second dose at least 2 hours after first dose up to 2 tablets per day as needed Orally Once a day , Taking EpiPen 2-Maxwell 0.3 MG/0.3ML Solution Auto-injector as directed Injection once daily as needed , Medication List reviewed and reconciled with the patient * Allergies: P enicillin, Sulfamethoxazole. Objective: * Vitals: W t:172.2, Temp:97.8, BP:122/70, HR:91, Nurse:marylin, Ht: 65, BMI:28.65. * Examination: P sychology: General Appearance: N AD. G rooming : a dequate.?Eye contact : megha nguyen. M ood : p lefrancois. H eart: R SR. L ungs: c lear to auscultation. Assessment: * Assessment: 1. D epression with anxiety - F41.8 (Primary) Plan: * Treatment: * Follow Up: 3 or 4 Weeks * Images: Billing Information: * Visit Code: 79053 Office Visit, Est Pt., Level 3. * Procedure Codes: * Electronic signature of Aiyana Pinedo MD on 03/13/2025 at 07:08 AM EDT Sign off status: Pending * Provider: Eliseo Pinedo M.D. Date: 07/03/2023 Generated for Ovi alegria/Volodymyr/Normaitting on: 0 03/13/2025 07:08 AM EDT History and Physical Notes * HPI (History of Present Illness) Category Sub-Category Detail Notes Category Not es Psychology Anxiety Pt states that s he saw psychiatry yesterday, Tamara Conroy [facility] in [place] and was advised to see PCP to get on medication for severe anxiety Examination Category Sub-Category Detail Notes Category Not es Psychology Heart: RSR Lungs: clear to auscultatio n General Appearance: NAD Grooming : adequate Eye contact : normal Mood : pleasant
--- OUTSIDE RECORDS SUMMARY | 2024-05-24 12:00 | XMS_ITS ---
Author Organization [facility] Address [address] [place] [id number] Care Team Providers Care Senior C Software Engineer Name Role Phone Yunier Pinedo Unavailable [phone] Allergies Allergen (clinical drug ingredient) Drug/Non Drug Allergy documented on EMR Reaction Allergy Type Onset Date Status Sulfamethoxazole Unknown Drug Allergy Active Penicillin Unknown Drug Allergy Active REASON FOR VISIT follow up for meds Medications Medication SIG (Take, Route, Frequency, Duration) Notes Start Date End Date Status SUMAtriptan Succinate 100 MG 1 tablet as needed, may take second dose at least 2 hours after first dose up to 2 tablets per day as needed Orally Once a day 04/01/2024 Active Mirena (52 MG) 20 MCG/DAY as directed Intrauterine Active DULoxetine HCl 30 MG 1 capsule Orally On ce a day; Duration: 30 day(s) 05/24/2024 Active EpiPen 2-Maxwell 0.3 MG/0.3ML as directed In jection once daily as needed 04/01/2024 Active Problems Problem Type SNOMED Code ICD Code Onset Dates Problem Status W/U Status Risk Notes Problem Mood disorder ([id number]) Mood disorder (F39) Active confirmed Vital Signs Blood pressure systolic 120 mm Hg 05/24/20 24 Blood pressure diastolic 70 mm Hg 024 Heart Rate 94 /min 05/24/2024 Height 65 in 05/24/2024 Weight 174 lbs 05/24/2024 BMI 28.95 kg/m2 05/24/2024 Encounters Encounter Location Date Provider Diagnosis [facility] [address] [place] [id number] 05/24/2024 Yunier Pinedo Mood disorder F39 Assessments Encounter Date Diagnosis (ICD Code) Assessment Notes Treatment Notes Treatment Clinical Notes Section Notes 05/24/2024 Mood disorder (ICD-10 - F39) May have Bipolar disorder, has a family history. Need to have Gene Sight testing as she has failed 4 drugs now Plan Of Treatment Medication Medication Name Sig Start Date Stop Date Notes DULoxetine HCl 60 MG 1 capsule Orally Once a day DULoxetine HCl 30 MG 1 capsule Orally On ce a day; Duration: 30 day(s) 05/24/2024 Treatment Notes Assessment Notes Mood disorder May have Bipolar dis order, has a family history. Need to have Gene Sight testing as she has failed 4 drugs now Next Appt Details Follow Up: 4 to 6 Weeks, Radha son: Progress Notes * STEFANI VEGASOB:[birth year] (24 yo F)Acc No.[id number]:05/24/2024 Progress Notes Patient: HERNAN BAKER Provider: Eliseo Pinedo M.D. :2000 A ge:23 Y S ex:Female Date:05/24/2024 Address:[address] [place] [address] Subjective: * Chief Complaints: * 1 . Follow up for meds. * HPI: P sychology: 23 year old female presents with c/o depression P t here to f/u on depression. Pt started on Duloxetine 60 mg on 05/03/2024 . Pt states medication is not working for her at all . Pt states she is constantly tired and h as a hard time getting out of bed in the morning. Pt states her and her fiance have argued a lot and that is something that does not happen often. Pt would like to have medication changed. * ROS: D ERMATOLOGY: no R helena. n o H jesus. G ASTROENTEROLOGY: no N ausea. n o V omiting. U ROLOGY: no D ifficulty urinating. n o B lood in urine. * Medical History: A llergic Rhinitis, Gall Bladder Problems, Depression, Anxiety, Allergic to Cinnamon. * Surgical History: T onsilectomy , Cholecystectomy . * Hospitalization/Major Diagno stic Procedure: D enies Past Hospitalization. * Family History: M other: alive, diagnosed with Heart Disease. 1 sister(s) . . Diabetes: Aunts and Grandparents no living will No power of employment attorney. * Social History: C URRENT TOBACCO USE: No . C affeine: yes, frequency: 1 cup a day. Marital Status: Single. Alcohol: yes, socially. Occupation: employed, [employer] lab. Sexually active: yes. * Medications: [...] directed Injection once daily as needed , Taking DULoxetine HCl 60 MG Capsule Delayed Release Particles 1 capsule Orally Once a day , Medication List reviewed and reconciled with the patient * Allergies: P enicillin, Sulfamethoxazole. Objective: * Vitals: W t:174, Temp:98.0, BP:120/70, HR:94, Nurse:marylin, Ht: 65, BMI:28.95. * Examination: P sychology: General Appearance: N AD. G rooming : a dequate.?Eye contact : megha nguyen. M ood : rossi montaño. Assessment: * Assessment: 1. M ood disorder - F39 (Primary) Plan: * Treatment: * Follow Up: 4 to 6 Weeks * Images: Billing Information: * Visit Code: 86830 Office Visit, Est Pt., Level 3. * Procedure Codes: * Electronic signature of Aiyana Pinedo MD on 03/13/2025 at 07:08 AM EDT Sign off status: Pending * Provider: Eliseo Pinedo M.D. Date: 07/25/2023 Generated for Ovi alegria/Volodymyr/Alexei on: 0 03/13/2025 07:08 AM EDT History and Physical Notes * HPI (History of Present Illness) Category Sub-Category Detail Notes Category Not es Psychology depression Pt here to f/u o n depression. Pt started on Duloxetine 60 mg on 05/03/2024 . Pt states medication is not working for her at all . Pt states she is constantly tired and has a hard time getting out of bed in the morning. Pt states her and her fiance have argued a lot and that is something that does not happen often. Pt would like to have medication changed Examination Category Sub-Category Detail Notes Category Not es Psychology General Appearance: NAD Grooming : adequate Eye contact : normal Mood : pleasant
--- OUTSIDE RECORDS SUMMARY | 2024-06-28 07:15 | XMS_ITS ---
Author Organization [facility] Address [address] [facility] [address] [place], [place] [id number] Care Team Providers Care Music Orchestrator Name Role Phone Yunier Pinedo Unavailable [phone] Mandi Akhtar Unavailable [phone] Allergies Allergen (clinical drug ingredient) Drug/Non Drug Allergy documented on EMR Reaction Allergy Type Onset Date Status Sulfamethoxazole Unknown Drug Allergy Active Penicillin Unknown Drug Allergy Active REASON FOR VISIT chest congestion, rattling in chest Medications Medication SIG (Take, Route, Frequency, Duration) Notes Start Date End Date Status EpiPen 2-Maxwell 0.3 MG/0.3ML as directed In jection once daily as needed 04/01/2024 Active Mirena (52 MG) 20 MCG/DAY as directed Intrauterine Active Zithromax Z-Maxwell 250 MG 2 pills first day then one daily for 4 days orally as directed; Duration: 5 days 06/28/2024 Activ e Kpsjgkvpj-Diixwibb-PN 30-2-10 MG/5ML 5-10 ml Orally 4 times a day, prn 06/28/2024 Active Albuterol Sulfate HFA 108 (90 Base) MCG/ACT 1 puff as needed Inhalation every 4 hrs, prn 06/28/2024 Active Vital Signs Blood pressure systolic 110 mm Hg 06/28/19 25 Blood pressure diastolic 80 mm Hg 025 Heart Rate 52 /min 06/28/2024 Height 65 in 06/28/2024 Weight 177.2 lbs 06/28/2024 BMI 29.48 kg/m2 06/28/2024 Encounters Encounter Location Date Provider [facility] [address] [facility] [address] [place] [id number] 06/28/2024 Mandi Crowrhonda Acute URI J06.9 and Bronchitis J40 Assessments Encounter Date Diagnosis (ICD Code) Assessment Notes Treatment Notes Treatment Clinical Notes Section Notes 06/28/2024 Acute URI (ICD-10 - J06.9) Zithromax will cover ear infection. 06/28/2024 Bronchitis (ICD-10 - J40) Plan Of Treatment Medication Medication Name Sig Start Date Stop Date Notes Zithromax Z-Maxwell 250 MG 2 pills first day then one daily for 4 days orally as directed; Duration: 5 days 06/28/2024 Dgjlaohjt-Czhoaehv-OA 30-2-1 0 MG/5ML 5-10 ml Orally 4 times a day, prn 06/28/2024 Albuterol Sulfate HFA 108 (9 0 Base) MCG/ACT 1 puff as needed Inhalation every 4 hrs, prn 06/28/2024 Treatment Notes Assessment Notes Acute URI Zithromax will cover ear infection. Next Appt Details Follow Up: prn, Reason: Progress Notes * STEFANI VEGASOB:[birth year] (24 yo F)Acc No.[id number]:06/28/2024 Progress Notes Patient: HERNAN BAKER Provider: DENNY Porter :2000 A ge:23 Y S ex:Female Date:06/28/2024 Address:[address] [place] [address] Subjective: * Chief Complaints: * 1 . Chest congestion, rattling in chest. * HPI: E NT/respiratory: 23 year old female presents with c/o cough. c/o chest congestion. c/o body aches. Pt sts a week ago she thought she had a sinus infection after she had the stomach bug, but sts that now she has body aches and nasty cough as well. * ROS: D ERMATOLOGY: no R helena. n o H jesus. G ASTROENTEROLOGY: no N ausea. n o V omiting. U ROLOGY: no D ifficulty urinating. n o B lood in urine. * Medical History: A llergic Rhinitis, Gall Bladder Problems, Depression, Anxiety, Allergic to Cinnamon. * Surgical History: T onsilectomy , Cholecystectomy . * Family History: M other: alive, diagnosed with Heart Disease. 1 sister(s) . . Diabetes: Aunts and Grandparents no living will No power of admitted attorneys. * Social History: C URRENT TOBACCO USE: No . C affeine: yes, frequency: 1 cup a day. Marital Status: Single. Alcohol: yes, socially. Occupation: employed, [employer] lab. Sexually active: yes. * Medications: T aking Mirena (52 MG) 20 MCG/DAY Intrauterine Device as directed Intrauterine , Taking EpiPen 2-Maxwell 0.3 MG/0.3ML Solution Auto-injector as directed Injection once daily as needed , Medication List reviewed and reconciled with the patient * Allergies: P enicillin, Sulfamethoxazole. Objective: * Vitals: W t:177.2, Temp:98.8, BP:110/80, HR:52, Nurse:LINDA, Ht: 65, BMI:29.48. * Examination: E NT/Respiratory: General Appearance: N AD. E ars: TM's erythematous bilaterally, canals clear. N ose : turbinates red, congested. S inuses : non tender bilaterally. O ral cavity : erythema without exudate on pharynx, PND present. N nette : n o cervical lymphadenopathy. H eart : R RR, normal S1 S2, no murmurs. L ungs:? expiratory wheezes, no rales. Assessment: * Assessment: 1. A stephanie SHOEMAKER - J06.9 (Primary) 2 . B felicia - J40 Plan: * Treatment: 2. B luis mtis Start Zithromax Z-Maxwell Tablet, 250 MG, 2 pills first day then one daily for 4 days, orally, as directed, 5 days, 1, Refills 0; S tart Albuterol Sulfate HFA Aerosol Solution, 108 (90 Base) MCG/ACT, 1 puff as needed, Inhalation, every 4 hrs, prn, 1, Refills 1. * Procedure Codes: 3 6416 CAPILLARY BLOOD DRAW, 43221 CBC WITH AUTO DIFF * Follow Up: p rn * Images: Billing Information: * Visit Code: 50339 Office Visit, Est Pt., Level 3. * Procedure Codes: 41340 CAPILLARY BLOOD DRAW. 65790 CBC WITH AUTO DIFF. * Electronic signature of DENNY Fitzgerald on 03/13/2025 at 07:08 AM EDT Sign off status: Pending * Provider: DENNY Porter Date: 0 06/28/2024 Generated for Ovi alegria/Fabogadng/eTransmitting on: 0 03/13/2025 07:08 AM EDT History and Physical Notes * HPI (History of Present Illness) Category Sub-Category Detail Notes Category Not es ENT/respiratory cough Pt sts a wee k ago she thought she had a sinus infection after she had the stomach bug, but sts that now she has body aches and nasty cough as well chest congestion body aches Examination Category Sub-Category Detail Notes Category Not es ENT/Respiratory Oral cavity : erythema without exudate on pharynx, PND present Sinuses : non tender bilateral ly Ears: TM's erythematous bi laterally, canals clear Neck : no cervical lymphade nopathy Heart : RRR, normal S1 S2, n o murmurs Lungs: expiratory wheezes, no rales General Appearance: NAD Nose : turbinates red, john ested
--- OUTSIDE RECORDS SUMMARY | 2024-08-23 09:30 | XMS_ITS ---
Author Organization [facility] Address [address] [place] [id number] Care Team Providers Care Pediatric Psychologist Name Role Phone Yunier Pinedo Unavailable [phone] Allergies Allergen (clinical drug ingredient) Drug/Non Drug Allergy documented on EMR Reaction Allergy Type Onset Date Status Sulfamethoxazole Unknown Drug Allergy Active Penicillin Unknown Drug Allergy Active REASON FOR VISIT discuss medication change Medications Medication SIG (Take, Route, Frequency, Duration) Notes Start Date End Date Status EpiPen 2-Maxwell 0.3 MG/0.3ML as directed In jection once daily as needed 04/01/2024 Active Mirena (52 MG) 20 MCG/DAY as directed Intrauterine Active Qulipta 60 MG 1 tablet Orally Once a day Active Albuterol Sulfate HFA 108 (90 Base) MCG/ACT 1 puff as needed Inhalation every 4 hrs, prn 06/28/2024 Active SUMAtriptan Succinate 100 MG 1 tablet as needed, may take second dose at least 2 hours after first dose up to 2 tablets per day as needed Orally Once a day 04/01/2024 Active Vital Signs Blood pressure systolic 120 mm Hg 08/24/19 25 Blood pressure diastolic 80 mm Hg 025 Heart Rate 87 /min 08/23/2024 Height 65 in 08/23/2024 Weight 176.4 lbs 08/23/2024 BMI 29.35 kg/m2 08/23/2024 Encounters Encounter Location Date Provider Diagnosis [facility] [address] [place] [id number] 08/23/2024 Yunier Pinedo Migraine without sta tus migrainosus, not intractable, unspecified migraine type G43.909 Assessments Encounter Date Diagnosis (ICD Code) Assessment Notes Treatment Notes Treatment Clinical Notes Section Notes 08/23/2024 Migraine without status migrainosus, not intractable, unspecified migraine type (ICD-10 - G43.909) Plan Of Treatment Medication Medication Name Sig Start Date Stop Date Notes Qulipta 60 MG 1 tablet Orally Once a day 08/23/2024 SUMAtriptan Succinate 100 MG 1 tablet as needed, may take second dose at least 2 hours after first dose up to 2 tablets per day as needed Orally Once a day 04/01/2024 Next Appt Details Follow Up: via phone to repo rt progress, Reason: Progress Notes * STEFANI VEGASOB:[birth year] (24 yo F)Acc No.[id number]:08/23/2024 Progress Notes Patient: HERNAN BAKER Provider: Eliseo Pinedo M.D. :2000 A ge:23 Y S ex:Female Date:08/23/2024 Address:[address] [place] [address] Subjective: * Chief Complaints: * 1 . Discuss medication change. * HPI: H PI: 23 year old female presents with c/o Patient is here today for?Pt sts she needs a refill on one of her medications and sts she would like a medication for her headaches. She has previously taken Imitrex, Topamax and Nurtec ODT. * ROS: D ERMATOLOGY: no R helena. n o H jesus. G ASTROENTEROLOGY: no N ausea. n o V omiting. * Medical History: A llergic Rhinitis, Gall Bladder Problems, Depression, Anxiety, Allergic to Cinnamon, Migraine headache. * Surgical History: T onsilectomy , Cholecystectomy . * Hospitalization/Major Diagno stic Procedure: D enies Past Hospitalization. * Family History: M other: alive, diagnosed with Heart Disease. 1 sister(s) . . Diabetes: Aunts and Grandparents no living will No power of divorce attorney. * Social History: C URRENT TOBACCO USE: No . C affeine: yes, frequency: 1 cup a day. Marital Status: Single. Alcohol: yes, socially. Occupation: employed, [employer] lab. Sexually active: yes. * Medications: T aking Mirena (52 MG) 20 MCG/DAY Intrauterine Device as directed Intrauterine , Taking EpiPen 2-Maxwell 0.3 MG/0.3ML Solution Auto-injector as directed Injection once daily as needed , Taking Albuterol Sulfate HFA 108 (90 Base) MCG/ACT Aerosol Solution 1 puff as needed Inhalation every 4 hrs, prn , Taking SUMAtriptan Succinate 100 MG Tablet 1 tablet as needed, may take second dose at least 2 hours after first dose up to 2 tablets per day as needed Orally Once a day , Medication List reviewed and reconciled with the patient * Allergies: P enicillin, Sulfamethoxazole. Objective: * Vitals: W t:176.4, Temp:98.5, BP:120/80, HR:87, O2 Sat:98% on RA, Nurse:[facility], Ht: 65, BMI:29.35. * Examination: G eneral Examination: General Appearance: N AD. N eurologic Exam: I ntact, gait normal. Assessment: * Assessment: 1. M igraine without status migrainosus, not intractable, unspecified migraine type - G43.909 (Primary) Plan: * Treatment: * Procedure Codes: 3 074F SYST BP LT 130 MM HG, 3079F DIAST BP 80-89 MM HG * Follow Up: v ia phone to report progress * Images: Billing Information: * Visit Code: 38102 Office Visit, Est Pt., Level 3. * Procedure Codes: 3074F SYST BP LT 130 MM HG. 3079F DIAST BP 80-89 MM HG. * Electronic signature of Aiyana Pinedo MD on 03/13/2025 at 07:08 AM EDT Sign off status: Pending * Provider: Eliseo Pinedo M.D. Date: 0 08/23/2024 Generated for Ovi alegria/Volodymyr/Alexei on: 0 03/13/2025 07:08 AM EDT History and Physical Notes * HPI (History of Present Illness) Category Sub-Category Detail Notes Category Not es HPI Patient is here today for Pt sts she needs a refill on one of her medications and sts she would like a medication for her headaches. She has previously taken Imitrex, Topamax and Nurtec ODT Examination Category Sub-Category Detail Notes Category Not es General Examination General Appearance: NAD Neurologic Exam: Intact, gait normal
--- OUTSIDE RECORDS SUMMARY | 2025-03-12 10:30 | XMS_ITS ---
Author Organization [facility] Address [address] [place] [id number] Care Team Providers Care Reiki Practitioner Name Role Phone Yunier Pinedo Unavailable [phone] Allergies Allergen (clinical drug ingredient) Drug/Non Drug Allergy documented on EMR Reaction Allergy Type Onset Date Status Sulfamethoxazole Unknown Drug Allergy Active Penicillin Unknown Drug Allergy Active REASON FOR VISIT Check Up and Refills Medications Medication SIG (Take, Route, Frequency, Duration) Notes Start Date End Date Status Mirena (52 MG) 20 MCG/DAY as directed Intrauterine Active Albuterol Sulfate HFA 108 (90 Base) MCG/ACT 1 puff as needed Inhalation every 4 hrs, prn 06/28/2024 Active EpiPen 2-Maxwell 0.3 MG/0.3ML as directed In jection once daily as needed 04/01/2024 Active Qulipta 60 MG 1 tablet Orally Once a day; Duration: 90 days 08/23/2024 Active SUMAtriptan Succinate 100 mg TAKE ONE TABLET BY MOUTH, MAY take 2nd tablet AT least 2 hours AFTER first DOSE, max 2 tablets PER DAY; Duration: 30 days As needed Active Vital Signs Blood pressure systolic 114 mm Hg 03/12/20 25 Blood pressure diastolic 70 mm Hg 025 Heart Rate 94 /min 03/12/2025 Height 65 in 03/12/2025 Weight 173 lbs 03/12/2025 BMI 28.79 kg/m2 03/12/2025 Encounters Encounter Location Date Provider Diagnosis [facility] [address] [place] [phone] 03/12/2025 Yunier Pinedo Migraine without sta tus migrainosus, not intractable, unspecified migraine type G43.909 ; Vitamin D deficiency E55.9 and Other fatigue R53.83 Assessments Encounter Date Diagnosis (ICD Code) Assessment Notes Treatment Notes Treatment Clinical Notes Section Notes 03/12/2025 Migraine without status migrainosus, not intractable, unspecified migraine type (ICD-10 - G43.909) 03/12/2025 Vitamin D deficiency (ICD-10 - E55.9) 03/12/2025 Other fatigue (ICD-10 - R53.83) Plan Of Treatment Medication Medication Name Sig Start Date Stop Date Notes Qulipta 60 MG 1 tablet Orally Once a day; Duration: 90 days 08/23/2024 SUMAtriptan Succinate 100 mg TAKE ONE TA BLET BY MOUTH, MAY take 2nd tablet AT least 2 hours AFTER first DOSE, max 2 tablets PER DAY; Duration: 30 days Pending Test Test Name Order Date H-TSH 03/12/2025 H-CBC 03/12/2025 H-VITAMIN D 03/12/2025 H-CMP 03/12/2025 H-Cortisol 03/12/2025 Next Appt Details Follow Up: via phone to repo rt test results, Reason: Progress Notes * STEFANI VEGASOB:[birth year] (24 yo F)Acc No.[id number]:03/12/2025 Progress Notes Patient: HERNAN BAKER Provider: Eliseo Pinedo M.D. :2000 A ge:24 Y S ex:Female Date:03/12/2025 Address:[address] [place] [address] Subjective: * Chief Complaints: * 1 . Check Up and Refills. * HPI: N eurology: 24 year old female presents with c/o headache P t here for checkup on headaches. Pt states she is doing good on Sumatriptan and does need refill today. * ROS: C ONSTITUTIONAL: Fatigue yes. * Medical History: A llergic Rhinitis, Gall Bladder Problems, Depression, Anxiety, Allergic to Cinnamon, Migraine headache. * Surgical History: T onsilectomy , Cholecystectomy . * Hospitalization/Major Diagno stic Procedure: D enies Past Hospitalization. * Family History: M other: alive, diagnosed with Heart Disease. 1 sister(s) . . Diabetes: Aunts and Grandparents no living will No power of collections attorney. * Social History: C URRENT TOBACCO USE: No . C affeine: yes, frequency: 1 cup a day. Marital Status: Single. Alcohol: yes, socially. Occupation: employed, [employer] lab. Sexually active: yes. * Medications: T aking Mirena (52 MG) 20 MCG/DAY Intrauterine Device as directed Intrauterine , Taking EpiPen 2-Maxwell 0.3 MG/0.3ML Solution Auto-injector as directed Injection once daily as needed , Taking Albuterol Sulfate HFA 108 (90 Base) MCG/ACT Aerosol Solution 1 puff as needed Inhalation every 4 hrs, prn , Taking Qulipta 60 MG Tablet 1 tablet Orally Once a day , Taking SUMAtriptan Succinate 100 mg Tablet TAKE ONE TABLET BY MOUTH NEEDED, MAY take 2nd tablet AT least 2 hours AFTER first DOSE, maX 2 tablets PER DAY , Medication List reviewed and reconciled with the patient * Allergies: P enicillin, Sulfamethoxazole. Objective: * Vitals: W t: 173, Temp: 98.1, BP: 114/70, HR: 94, Nurse: marylin, Ht: 65, BMI:28.79. * Examination: G eneral Examination: General Appearance: N AD. N nette: n o thyromegaly.?Heart: R SR. L ungs: c lear to auscultation. P eripheral pulses: n ormal (2+) bilaterally. E xtremities: n o leg edema. Assessment: * Assessment: 1. M igraine without status migrainosus, not intractable, unspecified migraine type - G43.909 (Primary) 2 . V itamin D deficiency - E55.9 3 . O ther fatigue - R53.83 Plan: * Treatment: 2. V itamin D deficiency L AB: H-VITAMIN D 3. O ther fatigue L AB: H-TSH L AB: H-CBC L AB: H-CMP L AB: H-Cortisol * Follow Up: v ia phone to report test results * Images: Billing Information: * Visit Code: 90339 Office Visit, Est Pt., Level 4. * Procedure Codes: * Electronic signature of Aiyana Pinedo MD on 03/13/2025 at 07:08 AM EDT Sign off status: Pending * Provider: Eliseo Pinedo M.D. Date: 0 03/12/2025 Generated for Ovi alegria/Volodymyr/Normaitting on: 0 03/13/2025 07:08 AM EDT History and Physical Notes * HPI (History of Present Illness) Category Sub-Category Detail Notes Category Not es Neurology headache Pt here for chec kup on headaches. Pt states she is doing good on Sumatriptan and does need refill today Examination Category Sub-Category Detail Notes Category Not es General Examination Heart: RSR Lungs: clear to auscultatio n Extremities: no leg edema General Appearance: NAD Neck: no thyromegaly Peripheral pulses: normal (2+) bilatera lly
--- OUTSIDE RECORDS SUMMARY | 2025-03-13 07:08 | XMS_ITS | Clinical Summary ---
[facility] Organization [facility] Address [address] [place] [address] Care Team Providers Care Prospecting Driller Helper Name Role Phone Yunier Pinedo MD Primary Care Provider + [phone] Allergies Active Allergy Reactions Criticality Noted Date Comments Cinnamon Anaphylaxis High 12/14/2022 Epi pen for reaction Penicillins Hives High 04/05/2016 Sulfa Antibiotics Hives Medium 04/05/2016 Medications ondansetron ODT (ZOFRAN-ODT) [address] 1 tablet on the tongue As Needed. Active Vit-Fe Fumarate-FA ( vitamin 27-0.8) 27-0.8 MG tablet tablet Take by mouth Daily. Active Active Problems Problem Noted Date Diagnosed Date Pyelectasis of fetus on ultrasound 11/18 Immunizations Immunization Administration Dates Next Due PPD Test 11/30/2017 Family History Medical History Relation Name Comments Diabetes Paternal Grandmother Relation Name Status Comments Paternal Grandmother Social History Tobacco Use Types Packs/Day Years Used Date Smoking Tobacco: Never Smokeless Tobacco: Never Alcohol Use Standard Drinks/Week Comments Never 0 (1 standard drink = 0.6 oz pur e alcohol) Abuse Screen Answer Date Recorded Unsafe at Home or Work/School Not on file Feels Threatened by Someone? Not on file 04/2023 Does Anyone Keep You from Co ntacting Others or Doint Things Outside the Home? Not on file 03/29/2023 Physical Sign of Abuse Present Not on file 1 Housing Stability Answer Date Recorded Current Living Arrangements Not on file 03/19 Potentially Unsafe Housing Conditions Not on kendy e 03/29/2023 Family and Community Support Answer Dayron e Recorded Help with Day-to-Day Activities Not on file 03/29/2023 Lonely or Isolated Not on file 03/29/2023 Employment Answer Date Recorded Do you want help finding or keeping work or a dori b? Not on file 03/29/2023 Disabilities Answer Date Recorded Concentrating, Remembering, or Making Decisions Difficulty Not on file 03/29/2023 Doing Errands Independently Difficulty Not on fi le 03/29/2023 Education Answer Date Recorded Help with school or training? Not on file Preferred Language Not on file 03/29/2023 Comments No Sex and Gender Information Value Date Recorded Sex Assigned at Not on file Legal Sex Female 12:15 PM EDT Gender Identity Not on file Sexual Orientation Not on file Last Filed Vital Signs Vital Sign Reading Time Taken Comments Blood Pressure 137/76 02/08/2023 10:49 AM EDT Pulse 90 12/01/2018 12:26 PM EDT Temperature 36.5 C (97.7 F) 12/01/2018 12:26 PM EDT Respiratory Rate 12 12/01/2018 12:26 PM EDT Oxygen Saturation 99% 12/01/2018 12:26 PM EDT Inhaled Oxygen Concentration - - Weight 73 kg (161 lb) 02/08/2023 10:49 AM EDT Height 162.6 cm (5' 4 ) 12/14/2022 10:25 AM EDT Body Mass Index 27.64 12/14/2022 10:25 AM EDT Plan of Treatment Health Maintenance Due Date Last Done Comments Annual Gynecologic Pelvic an d Breast Exam 1998 HPV VACCINES (1 - 3-dose series) 2013 ANNUAL PHYSICAL 10/04/2016 HEPATITIS C SCREENING 10/04/2016 TDAP/TD VACCINES (1 - Tdap) 2017 INFLUENZA VACCINE 01/17/2025 07/18/2015 Pneumococcal Vaccine 0-49 Aged Out No longer eligible based on patient's age to complete this topic Insurance Care Teams Prospecting Driller Helper Relationship Specialty Start Date End Date Yunier Pinedo MD [address] [place] [facility] [address] [facility] [address] [place] [address] PCP - General Family Medicine 12/14/22
--- OUTSIDE RECORDS SUMMARY | 2025-03-13 07:09 | XMS_ITS | Patient Health Record ---
[facility] Address [address] [facility] [address] [place] [id number] Care Team Providers Care Grab Operator Name Role Phone Yunier Pinedo Unavailable [phone] Mandi Akhtar Unavailable [phone] Allergies Allergen (clinical drug ingredient) Drug/Non Drug Allergy documented on EMR Reaction Allergy Type Onset Date Status Sulfamethoxazole Unknown Drug Allergy Active Penicillin Unknown Drug Allergy Active Reason For Referral No Information Medications Medication SIG (Take, Route, Frequency, Duration) [...] DAY; Duration: 30 days As needed Active Immunizations Vaccine Route Administration Date Status Comme nts ppd Unknown 11/30/2017 Administered COVID 19 Moderna Unknown 10/03/2020 Administered COVID 19 Moderna Unknown 11/07/2020 Administered Problems Problem Type SNOMED Code ICD Code Onset Dates Problem Status W/U Status Risk Notes Problem Vitamin D deficiency (05006483) Vitamin D deficiency (E55.9) Active confirmed Problem Mixed anxiety and depressive disorder (668090754) Depression with anxiety (F41.8) Active confirmed Problem Mood disorder (12037320) Mood disorder (F39) Active confirmed Problem Migraine (34909945) Migraine without status migrainosus, not intractable, unspecified migraine type (G43.909) Active confirmed Vital Signs Heart Rate 94 /min 03/12/2025 Blood pressure diastolic 70 mm Hg 03/12/2025 Height 65 in 03/12/2025 Blood pressure systolic 114 mm Hg 03/12/2025 Weight 173 lbs 03/12/2025 BMI 28.79 kg/m2 03/12/2025 Encounters Encounter Location Date Provider Diagnosis [facility] [address] [place], [place] [id number] 04/01/2024 Yunier Odd Well adult exam Z00. 00 ; Migraine without status migrainosus, not intractable, unspecified migraine type G43.909 and Other anaphylactic reaction T78.2XXA [facility] [address] [facility] [address] [place], [place] [id number] 05/03/2024 Yunier Odd Depression with anxi ety F41.8 [facility] [address] [place], [place] [id number] 05/24/2024 Yunier Odd Mood disorder F39 [facility] [address] [place], [place] [id number] 06/28/2024 Mandi Crowdy Acute URI J06.9 and Bronchitis J40 [facility] [address] [place], [place] [id number] 08/23/2024 Yunier Odd Migraine without sta tus migrainosus, not intractable, unspecified migraine type G43.909 [facility] [address] [place], [place] [id number] 03/12/2025 Yunier Odd Migraine without sta tus migrainosus, not intractable, unspecified migraine type G43.909 ; Vitamin D deficiency E55.9 and Other fatigue R53.83 [facility] [address] [place], [place] [id number] 09/04/2024 Yunier Odd Migraine without sta tus migrainosus, not intractable, unspecified migraine type G43.909 Assessments Encounter Date Diagnosis (ICD Code) Assessment Notes Treatment Notes Treatment Clinical Notes Section Notes 05/03/2024 Depression with anxiety (ICD-10 - F41.8) 05/24/2024 Mood disorder (ICD-10 - F39) May have Bipolar disorder, has a family history. Need to have Gene Sight testing as she has failed 4 drugs now 06/28/2024 Bronchitis (ICD-10 - J40) 06/28/2024 Acute URI (ICD-10 - J06.9) Zithromax will cover ear infection. 08/23/2024 Migraine without status migrainosus, not intractable, unspecified migraine type (ICD-10 - G43.909) 09/04/2024 Migraine without status migrainosus, not intractable, unspecified migraine type (ICD-10 - G43.909) 03/12/2025 Vitamin D deficiency (ICD-10 - E55.9) 04/01/2024 Well adult exam (ICD-10 - Z00.00) 04/01/2024 Migraine without status migrainosus, not intractable, unspecified migraine type (ICD-10 - G43.909) 03/12/2025 Migraine without status migrainosus, not intractable, unspecified migraine type (ICD-10 - G43.909) 04/01/2024 Other anaphylactic reaction (ICD-10 - T78.2XXA) 03/12/2025 Other fatigue (ICD-10 - R53.83) Plan Of Treatment Pending Test Test Name Order Date H-TSH 03/12/2025 H-CBC 03/12/2025 H-VITAMIN D 03/12/2025 H-VITAMIN D 03/14/2022 H-CMP 03/12/2025 H-Cortisol 03/12/2025 Insurance Providers Payer Name Payer Address Payer Phone Subscriber Number Group Number Insured Name Patient Relationship to Insured Coverage Start Date Coverage End Date [facility] [address] [address] [place] [phone] [id number] HERNAN FLORES Self - patient is the insured Medical (General) History Medical History History ICD Code Allergic Rhinitis Gall Bladder Problems Depression anxiety Allergic to Cinnamon migraine headache Surgical History Surgery Date(Month/Year) Tonsilectomy Cholecystectomy Hospitalization History Reason Date(Month/Year)
[2025-03-13 07:28] LABS: Hematocrit 47.8 % (37.0-47.0); Hemoglobin 16.6 g/dL (12.2-16.2); Immature Granulocytes % 0.3 %; Mean Corpuscular HGB Conc 34.7 g/dL (31.8-35.4); Mean Corpuscular Hemoglobin 31.6 pg (27.0-31.2); Mean Corpuscular Volume 90.9 fl (81-99); Nucleated Red Blood Cells % 0 %; Platelet Count 350 K/mm3 (142-424); Red Blood Count 5.26 M/mm3 (4.20-5.40); Red Cell Distribution Width-SD 39.8 fL; White Blood Count 7.8 K/mm3 (4.8-10.8)
[2025-03-13 07:52] LABS: Alanine Aminotransferase 50 U/L (12-78); Albumin Level 4.1 g/dl (3.5-5.0); Albumin/Globulin Ratio 1.6 (1.1-1.8); Alkaline Phosphatase 74 U/L (38-126); Anion Gap 9.4 mEq/L (5-15); Aspartate Amino Transferase 66 U/L (14-36); Bilirubin,Total 0.6 mg/dl (0.2-1.3); Blood Urea Nitrogen 7 mg/dl (7-17); Calcium 9.1 mg/dl (8.4-10.2); Carbon Dioxide 26 mmol/L (22.0-30.0); Chloride 105 mmol/L (98-107); Creatinine,Serum 0.70 mg/dl (0.52-1.04); Estimated Glomerular Filt Rate 101 ml/min (>60); GFR (African American) 122 ML/MIN (>60); Globulin 2.6 g/dL (1.3-3.2); Glucose 95 mg/dl (74-100); Potassium 4.4 mmoL/L (3.5-5.1); Sodium 136 mmol/L (136-145); Total Protein,Serum 6.7 g/dl (6.3-8.2)
[2025-03-13 08:09] LABS: 25-OH Vitamin D, Total 32.1 ng/mL (30-100)
[2025-03-13 08:22] LABS: Thyroid Stimulating Hormone 1.09 uIU/mL (0.465-4.68)
== END 2025-03-13 23:59 | disposition home or self-care (01) ==
LOC: LAB 07:06
PROVIDERS: PCP Family Medicine; Visit Provider Family Medicine
DX: E55.9 Vitamin D deficiency, unspecified (principal); R53.83 Other fatigue
CPT/HCPCS: 36415; 80053; 82306; 82533; 84443; 85025

== ENCOUNTER 2025-05-13 09:22 | Outpatient (CLI) | payer OTHER, SELFPAY ==
--- OUTSIDE RECORDS SUMMARY | 2019-01-18 19:00 | XMS_ITS | Continuity of Care Document ---
Author Organization [facility] Address [address] [place] [phone] Phone Care Team Providers Care Claims Attorney Name Role Phone Management, Case Unavailable Unavailable Brittny Lee Unavailable Unavailable Procedures Procedure Date Face To Face Health Education Screening BP Advance Directives Directive Yes / No Effective Date File Name No Information Encounters Encounter Description Practice Location Reason(s) For Visit Diagnoses Date Provider Providers Copied on Encounter [facility], [address] [place] [address], [id number], [place] tel:[phone] [facility] No Information 9 Management Case. . Referring Provider: Case Management .Consultin g Provider: Brittny Lee. Family History Family Member Type Diagnosis Age At Onset No Information Payers Payer name Insurance type Covered libertarian ID Authoriza tion(s) No Information Social History Type Description Quantity Date Captured Comments Sex Female Smoking Status No Information Sexual Orientation Straight or heterosexual Gender Identity Female Chief Complaint And Reason For Visit No Information Reason For Referral Reason For Referral No Information History Of Present Illness Encounter Date Complaint History Of Prese nt Illness No Information Functional Status Date Functional Assessmen t No Information Instructions Date Instruction Additional Infor mation No Information Assessments Type Assessment Date No Information Patient Care Teams Name Effective Dates (start - stop) Status Members No Information
--- OUTSIDE RECORDS SUMMARY | 2025-05-13 09:25 | XMS_ITS | Clinical Summary ---
[facility] Address [address] [place] [address] Care Team Providers Care Apple Checker Name Role Phone Yunier Pinedo MD Primary Care Provider + [phone] Allergies Active Allergy Reactions Criticality Noted Date [...] to complete this topic Insurance Care Teams Apple Checker Relationship Specialty Start Date End Date Yunier Pinedo MD [address] [place] [facility] [address] [facility] [address] [place] [address] PCP - General Family Medicine 12/14/22
[2025-05-13 09:49] LABS: Alanine Aminotransferase 51 U/L (12-78); Albumin Level 4.5 g/dl (3.5-5.0); Alkaline Phosphatase 69 U/L (38-126); Aspartate Amino Transferase 55 U/L (14-36); Bilirubin,Direct 0.3 mg/dl (0.0-0.4); Bilirubin,Indirect 0.4 mg/dL (0.0-0.9); Bilirubin,Total 0.7 mg/dl (0.2-1.3); Bilirubin,Unconjugated 0.4 mg/dL (0.0-1.1); Total Protein,Serum 7.3 g/dl (6.3-8.2)
[2025-05-13 10:44] LABS: 25-OH Vitamin D, Total 93.9 ng/mL (30-100)
== END 2025-05-13 23:59 | disposition home or self-care (01) ==
LOC: LAB 09:22
PROVIDERS: PCP Family Medicine; Visit Provider Family Medicine
DX: E55.9 Vitamin D deficiency, unspecified (principal); R79.89 Other specified abnormal findings of blood chemistry
CPT/HCPCS: 36415; 80076; 82306